=== PATIENT | female | born 1945 | race Caucasian/White ===

== ENCOUNTER → 2017-05-22 | Outpatient (CLI) | payer MEDICARE ==
--- NOTE | 2017-05-22 14:53 | REPMRS ---
Patient History The patient states she has not had a clinical breast exam in over a year. Patient is postmenopausal. Family history of endometrial cancer in paternal aunt under age 50, breast cancer in maternal aunt at age 60, unknown cancer in paternal uncle at age 24, and unknown cancer in paternal uncle at age 50 or over. Benign excisional biopsy of the left breast. Took hormonal contraceptives for 2 years. Digital Woman Screen Mammo: May 22, 2017 - Exam #: [id number] Bilateral CC and MLO view(s) were taken. Technologist: Edna Spivey, Technologist Prior study comparison: November 25, 2013, bilateral bilat screen digital mammo, performed at [facility] ([facility]). August 12, 2012, bilateral bilat screen digital mammo, performed at [facility] ([facility]). FINDINGS: There are scattered fibroglandular densities. There has been no change in the appearance of the mammogram from the prior studies. There is a mild amount of residual fibroglandular tissue which is fairly symmetric. There is no interval development of dominant mass, architectural distortion, or clustered microcalcification suggestive of malignancy. ASSESSMENT: BI-RADS/ACR category 1 mammogram. Negative. Recommendation Routine screening mammogram in 1 year (for women over age 40). This mammogram was interpreted with the aid of an FDA-approved computer-aided dectection system. Electronically Signed By: Puneet Alatorre MD 05/22/17 1736
== END ==
LOC: M WHC 13:13
PROVIDERS: ATTEND Internal Medicine
DX: Z12.31 Encounter for screening mammogram for malignant neoplasm of breast (principal); Z78.0 Asymptomatic menopausal state; Z80.3 Family history of malignant neoplasm of breast; Z80.49 Family history of malignant neoplasm of other genital organs

== ENCOUNTER → 2017-11-13 | Outpatient (REF) | payer MEDICARE ==
[2017-11-13 20:38] LABS: VITAMIN B12 LEVEL 391 PG/ML
[2017-11-13 20:40] LABS: FOLATE 11.4 NG/ML
== END ==
LOC: M LAB REF 19:51
DX: F03.90 Unspecified dementia, unspecified severity, without behavioral disturbance, psychotic disturbance, mood disturbance, and anxiety (principal)
CPT/HCPCS: 82746

== ENCOUNTER 2017-12-24 22:23 | Inpatient (IN) | payer MEDICARE ==
[2017-12-24 22:46] LABS: BEDSIDE GLUCOSE 126 MG/DL (83-110)
[2017-12-24 23:48] LABS: BASO # 0.1 10^3/uL (0.0-0.2); BASO % 0.5 % (0.0-1.0); EOS # 0.2 10^3/uL (0.0-0.50); EOS % 1.4 % (0.0-3.0); HEMATOCRIT 39.9 % (36.0-47.0); HEMOGLOBIN 13.6 g/dl (12.0-16.0); IMMATURE GRANULOCYTE % 0.4 % (0-3.0); LYMPH # 2.6 10^3/uL (1.5-4.5); LYMPH % 23.8 % (24.0-44.0); MEAN CORPUSCULAR HEMOGLOBIN 30.8 pg (27.0-33.0); MEAN CORPUSCULAR HGB CONC 34.1 g/dl (32.0-36.5); MEAN CORPUSCULAR VOLUME 90.5 fl (80.0-96.0); MONO # 0.8 10^3/uL (0.0-0.8); MONO % 7.7 % (0.0-5.0); NEUTROPHILS # 7.3 10^3/uL (1.8-7.7); NEUTROPHILS % 66.2 % (36.0-66.0); PLATELET COUNT, AUTOMATED 316 10^3/uL (150-450); RED BLOOD COUNT 4.41 10^6/uL (4.00-5.40); RED CELL DISTRIBUTION WIDTH 12.9 % (11.5-14.5)
[2017-12-25 00:13] LABS: AMMONIA 59 uMOL/L (<32)
[2017-12-25 00:25] LABS: ALBUMIN 3.9 GM/DL (3.2-5.2); ALBUMIN/GLOBULIN RATIO 1.22 (1.00-1.93); ALKALINE PHOSPHATASE 88 U/L (45-117); ALT/SGPT 19 U/L (12-78); ANION GAP 13 MEQ/L (8-16); AST/SGOT 32 U/L (7-37); BILIRUBIN,DIRECT 0.2 MG/DL (0.0-0.2); BILIRUBIN,TOTAL 0.6 MG/DL (0.2-1.0); BLOOD UREA NITROGEN 12 MG/DL (7-18); CALCIUM LEVEL 9.1 MG/DL (8.8-10.2); CARBON DIOXIDE LEVEL 23 MEQ/L (21-32); CHLORIDE LEVEL 98 MEQ/L (98-107); CREATININE FOR GFR 2.44 MG/DL (0.55-1.30); ETHYL ALCOHOL (ETHANOL) < 0.003 % (0.000-0.010); FREE THYROXINE INDEX 3.7 % (1.3-4.8); GLOMERULAR FILTRATION RATE 20.7 (>39); GLUCOSE, FASTING 88 MG/DL (70-100); POTASSIUM SERUM 4.2 MEQ/L (3.5-5.1); SODIUM LEVEL 134 MEQ/L (136-145); T UPTAKE 31 % (30-39); TOTAL PROTEIN 7.1 GM/DL (6.4-8.2)
[2017-12-25 00:25] LABS: LACTIC ACID SEPSIS PROTOCOL 2.1 MMOL/L (0.4-2.0)
[2017-12-25] MEDS: NS 500 ML IV (00:30)
[2017-12-25] MEDS ORDERED: ONDANSETRON 4 MG TAB (S0181) PO (02:45)
[2017-12-25] MEDS: LACTULOSE 20 GM/30 ML SYRUP UD PO (03:15)
[2017-12-25] MEDS: NS 1,000 ML IV ×3 (04:32→20:42)
[2017-12-25 05:06] LABS: APPEARANCE, URINE CLOUDY (CLEAR); BACTERIA, URINE AUTO NEGATIVE (NEGATIVE); BILIRUBIN, URINE AUTO NEGATIVE (NEGATIVE); BLOOD, URINE BLOOD 1+ (NEGATIVE); COLOR, URINE YELLOW (YELLOW); GLUCOSE, URINE (UA) AUTO 3+ mg/dL (NEGATIVE); KETONE, URINE AUTO TRACE mg/dL (NEGATIVE); LEUKOCYTE ESTERASE, URINE AUTO 1+ (NEGATIVE); NITRITE, URINE AUTO NEGATIVE (NEGATIVE); PROTEIN, URINE AUTO 1+ mg/dL (NEGATIVE); RBC, URINE AUTO 3 /HPF (0-3); SPECIFIC GRAVITY URINE AUTO 1.011 (1.002-1.035); SQUAMOUS EPITHELIAL CELL UR AU 1 /HPF (0-6); UROBILINOGEN, URINE AUTO 0.2 mg/dL (0.0-2.0); WBC, URINE AUTO 16 /HPF (0-3)
[2017-12-25 05:15] LABS: AMPHETAMINES LEVEL URINE NEGATIVE (NEGATIVE); BARBITURATES URINE NEGATIVE (NEGATIVE); BENZODIAZEPINES URINE NEGATIVE (NEGATIVE); CANNABINOIDS URINE NEGATIVE (NEGATIVE); COCAINE METABOLITE URINE NEGATIVE (NEGATIVE); METHADONE URINE NEGATIVE (NEGATIVE); OPIATES URINE NEGATIVE (NEGATIVE); PHENCYCLIDINE URINE NEGATIVE (NEGATIVE)
[2017-12-25] MEDS: HEPARIN SOD (PORCINE) 5000 UNITS/ML VIAL SC ×3 (05:53→20:43)
[2017-12-25 05:59] LABS: HEMATOCRIT 39.9 % (36.0-47.0); HEMOGLOBIN 13.5 g/dl (12.0-16.0); MEAN CORPUSCULAR HEMOGLOBIN 29.9 pg (27.0-33.0); MEAN CORPUSCULAR HGB CONC 33.8 g/dl (32.0-36.5); MEAN CORPUSCULAR VOLUME 88.5 fl (80.0-96.0); PLATELET COUNT, AUTOMATED 296 10^3/uL (150-450); RED BLOOD COUNT 4.51 10^6/uL (4.00-5.40); RED CELL DISTRIBUTION WIDTH 12.8 % (11.5-14.5); WHITE BLOOD COUNT 10.5 10^3/uL (4.0-10.0)
[2017-12-25 06:18] LABS: ANION GAP 12 MEQ/L (8-16); BLOOD UREA NITROGEN 13 MG/DL (7-18); CALCIUM LEVEL 8.8 MG/DL (8.8-10.2); CARBON DIOXIDE LEVEL 22 MEQ/L (21-32); CHLORIDE LEVEL 103 MEQ/L (98-107); CREATININE FOR GFR 2.23 MG/DL (0.55-1.30); GLOMERULAR FILTRATION RATE 22.9 (>39); GLUCOSE, FASTING 100 MG/DL (70-100); POTASSIUM SERUM 3.6 MEQ/L (3.5-5.1); SODIUM LEVEL 137 MEQ/L (136-145)
[2017-12-25 06:22] LABS: LACTIC ACID SEPSIS PROTOCOL 1.4 MMOL/L (0.4-2.0)
[2017-12-25 06:36] LABS: INR 1.05; PROTHROMBIN TIME 13.8 SECONDS (12.4-14.5)
[2017-12-25] MEDS: HumaLOG INSULIN (NovoLOG) PER UNIT SC ×4 (06:52→20:42)
[2017-12-25] MEDS: CLOPIDOGREL 75 MG TAB PO (09:12)
[2017-12-25] MEDS: ASPIRIN 81 MG ENTERIC TAB PO (09:12)
[2017-12-25] MEDS: CEFTRIAXONE SOD 1 GM in APPROPRIATE DILUENT 1 EA IV (09:12)
[2017-12-25] MEDS: CitaloPRAM (CeleXA) 20 MG TAB PO (09:12)
[2017-12-25] MEDS: ATENOLOL 25 MG TAB PO (09:16)
[2017-12-25] MEDS: MEMANTINE 5MG TABLET (NAMENDA) PO (12:00)
[2017-12-25 16:53] LABS: BEDSIDE GLUCOSE 139 MG/DL (83-110)
[2017-12-26] MEDS: ACETAMINOPHEN TAB 650MG DOSE (2X325MG) PO (01:22)
[2017-12-26 01:53] LABS: BEDSIDE GLUCOSE 124 MG/DL (83-110)
[2017-12-26 01:53] LABS: BEDSIDE GLUCOSE 125 MG/DL (83-110)
[2017-12-26] MEDS: NS 1,000 ML IV ×3 (04:16→20:45)
[2017-12-26] MEDS: HEPARIN SOD (PORCINE) 5000 UNITS/ML VIAL SC ×3 (05:27→20:45)
[2017-12-26 06:11] LABS: HEMATOCRIT 34.6 % (36.0-47.0); HEMOGLOBIN 11.7 g/dl (12.0-16.0); MEAN CORPUSCULAR HEMOGLOBIN 30.6 pg (27.0-33.0); MEAN CORPUSCULAR HGB CONC 33.8 g/dl (32.0-36.5); MEAN CORPUSCULAR VOLUME 90.6 fl (80.0-96.0); PLATELET COUNT, AUTOMATED 216 10^3/uL (150-450); RED BLOOD COUNT 3.82 10^6/uL (4.00-5.40); RED CELL DISTRIBUTION WIDTH 13.1 % (11.5-14.5); WHITE BLOOD COUNT 6.5 10^3/uL (4.0-10.0)
[2017-12-26 06:39] LABS: ANION GAP 9 MEQ/L (8-16); BLOOD UREA NITROGEN 8 MG/DL (7-18); CALCIUM LEVEL 8.4 MG/DL (8.8-10.2); CARBON DIOXIDE LEVEL 23 MEQ/L (21-32); CHLORIDE LEVEL 108 MEQ/L (98-107); CREATININE FOR GFR 1.06 MG/DL (0.55-1.30); GLOMERULAR FILTRATION RATE 54.1 (>39); GLUCOSE, FASTING 92 MG/DL (70-100); POTASSIUM SERUM 3.5 MEQ/L (3.5-5.1); SODIUM LEVEL 140 MEQ/L (136-145)
[2017-12-26] MEDS: HumaLOG INSULIN (NovoLOG) PER UNIT SC ×4 (07:30→20:45)
[2017-12-26] MEDS: CLOPIDOGREL 75 MG TAB PO (08:23)
[2017-12-26] MEDS: ATENOLOL 25 MG TAB PO (08:23)
[2017-12-26] MEDS: MEMANTINE 5MG TABLET (NAMENDA) PO (08:24)
[2017-12-26] MEDS: ASPIRIN 81 MG ENTERIC TAB PO (08:24)
[2017-12-26] MEDS: CitaloPRAM (CeleXA) 20 MG TAB PO (08:24)
[2017-12-26] MEDS: CEFTRIAXONE SOD 1 GM in APPROPRIATE DILUENT 1 EA IV (08:24)
[2017-12-26 23:26] LABS: BEDSIDE GLUCOSE 117 MG/DL (83-110)
[2017-12-26 23:26] LABS: BEDSIDE GLUCOSE 141 MG/DL (83-110)
[2017-12-26 23:26] LABS: BEDSIDE GLUCOSE 108 MG/DL (83-110)
[2017-12-27] MEDS: NS 1,000 ML IV ×2 (05:17→13:10)
[2017-12-27] MEDS: HEPARIN SOD (PORCINE) 5000 UNITS/ML VIAL SC ×3 (05:19→23:19)
[2017-12-27 07:02] LABS: HEMATOCRIT 37.8 % (36.0-47.0); HEMOGLOBIN 12.1 g/dl (12.0-16.0); MEAN CORPUSCULAR HEMOGLOBIN 29.9 pg (27.0-33.0); MEAN CORPUSCULAR VOLUME 93.3 fl (80.0-96.0); PLATELET COUNT, AUTOMATED 225 10^3/uL (150-450); RED BLOOD COUNT 4.05 10^6/uL (4.00-5.40); RED CELL DISTRIBUTION WIDTH 13.1 % (11.5-14.5); WHITE BLOOD COUNT 6.1 10^3/uL (4.0-10.0)
[2017-12-27 07:19] LABS: ANION GAP 9 MEQ/L (8-16); BLOOD UREA NITROGEN 5 MG/DL (7-18); CARBON DIOXIDE LEVEL 20 MEQ/L (21-32); CHLORIDE LEVEL 113 MEQ/L (98-107); GLOMERULAR FILTRATION RATE > 60.0 (>39); GLUCOSE, FASTING 86 MG/DL (70-100); POTASSIUM SERUM 3.9 MEQ/L (3.5-5.1); SODIUM LEVEL 142 MEQ/L (136-145)
[2017-12-27] MEDS: HumaLOG INSULIN (NovoLOG) PER UNIT SC ×4 (07:32→21:00)
[2017-12-27] MEDS: CitaloPRAM (CeleXA) 20 MG TAB PO (08:38)
[2017-12-27] MEDS: CLOPIDOGREL 75 MG TAB PO (08:38)
[2017-12-27] MEDS: ASPIRIN 81 MG ENTERIC TAB PO (08:38)
[2017-12-27] MEDS: MEMANTINE 5MG TABLET (NAMENDA) PO (08:38)
[2017-12-27] MEDS: ATENOLOL 25 MG TAB PO (08:40)
[2017-12-27] MEDS: CEFTRIAXONE SOD 1 GM in APPROPRIATE DILUENT 1 EA IV (08:44)
[2017-12-27 11:59] LABS: BEDSIDE GLUCOSE 125 MG/DL (83-110)
[2017-12-27 17:30] LABS: BEDSIDE GLUCOSE 128 MG/DL (83-110)
[2017-12-27 20:51] LABS: BEDSIDE GLUCOSE 149 MG/DL (83-110)
[2017-12-28] MEDS: HEPARIN SOD (PORCINE) 5000 UNITS/ML VIAL SC (06:23)
[2017-12-28 06:34] LABS: HEMATOCRIT 34.3 % (36.0-47.0); HEMOGLOBIN 11.5 g/dl (12.0-16.0); MEAN CORPUSCULAR HEMOGLOBIN 30.1 pg (27.0-33.0); MEAN CORPUSCULAR HGB CONC 33.5 g/dl (32.0-36.5); MEAN CORPUSCULAR VOLUME 89.8 fl (80.0-96.0); PLATELET COUNT, AUTOMATED 238 10^3/uL (150-450); RED BLOOD COUNT 3.82 10^6/uL (4.00-5.40); RED CELL DISTRIBUTION WIDTH 13.2 % (11.5-14.5); WHITE BLOOD COUNT 5.5 10^3/uL (4.0-10.0)
[2017-12-28 06:48] LABS: ANION GAP 10 MEQ/L (8-16); BLOOD UREA NITROGEN 6 MG/DL (7-18); CALCIUM LEVEL 8.7 MG/DL (8.8-10.2); CARBON DIOXIDE LEVEL 24 MEQ/L (21-32); CHLORIDE LEVEL 110 MEQ/L (98-107); CREATININE FOR GFR 0.79 MG/DL (0.55-1.30); GLOMERULAR FILTRATION RATE > 60.0 (>39); GLUCOSE, FASTING 108 MG/DL (70-100); POTASSIUM SERUM 3.6 MEQ/L (3.5-5.1); SODIUM LEVEL 144 MEQ/L (136-145)
[2017-12-28] MEDS: CEFTRIAXONE SOD 1 GM in APPROPRIATE DILUENT 1 EA IV (08:21)
[2017-12-28] MEDS: ASPIRIN 81 MG ENTERIC TAB PO (08:22)
[2017-12-28] MEDS: CitaloPRAM (CeleXA) 20 MG TAB PO (08:22)
[2017-12-28] MEDS: HumaLOG INSULIN (NovoLOG) PER UNIT SC (08:22)
[2017-12-28] MEDS: CLOPIDOGREL 75 MG TAB PO (08:22)
[2017-12-28] MEDS: MEMANTINE 5MG TABLET (NAMENDA) PO (08:22)
[2017-12-28] MEDS: ATENOLOL 25 MG TAB PO (08:23)
[2017-12-28 12:33] LABS: BEDSIDE GLUCOSE 130 MG/DL (83-110)
== END 2017-12-28 12:45 | disposition home health service (06) | DRG 948 ==
LOC: M MSPAV 12-26 04:12 → M ED 22:23 → M ED INP 12-25 02:52 → M PCU 12-25 04:12
PROVIDERS: Internal Medicine
DX: R41.82 Altered mental status, unspecified (principal); N17.9 Acute kidney failure, unspecified; E87.1 Hypo-osmolality and hyponatremia; E87.2 Acidosis; R44.0 Auditory hallucinations; F03.90 Unspecified dementia, unspecified severity, without behavioral disturbance, psychotic disturbance, mood disturbance, and anxiety; E11.9 Type 2 diabetes mellitus without complications; R44.1 Visual hallucinations; I25.10 Atherosclerotic heart disease of native coronary artery without angina pectoris; E78.5 Hyperlipidemia, unspecified; E86.0 Dehydration; R19.7 Diarrhea, unspecified; Z79.82 Long term (current) use of aspirin; Z79.84 Long term (current) use of oral hypoglycemic drugs; Z79.899 Other long term (current) drug therapy; Z87.891 Personal history of nicotine dependence; Z79.02 Long term (current) use of antithrombotics/antiplatelets

== ENCOUNTER → 2018-01-30 | Outpatient (REF) | payer MEDICARE ==
[2018-01-30 13:27] LABS: AMMONIA < 10 uMOL/L (<32)
== END ==
LOC: M LAB REF 12:15
DX: R44.0 Auditory hallucinations (principal)
CPT/HCPCS: 82140

== ENCOUNTER → 2018-03-31 | Outpatient (REF) | payer MEDICARE ==
[2018-03-31 09:56] LABS: ANION GAP 7 MEQ/L (8-16); BLOOD UREA NITROGEN 25 MG/DL (7-18); CALCIUM LEVEL 9.2 MG/DL (8.8-10.2); CARBON DIOXIDE LEVEL 29 MEQ/L (21-32); CHLORIDE LEVEL 102 MEQ/L (98-107); CREATININE FOR GFR 1.16 MG/DL (0.55-1.30); GLOMERULAR FILTRATION RATE 48.8 (>39); GLUCOSE, FASTING 223 MG/DL (70-100); POTASSIUM SERUM 4.3 MEQ/L (3.5-5.1); SODIUM LEVEL 138 MEQ/L (136-145)
== END ==
LOC: SKLAB8 08:00
DX: N18.3 Chronic kidney disease, stage 3 (moderate) (principal)
CPT/HCPCS: 36415

== ENCOUNTER → 2018-05-01 | Outpatient (REF) | payer MEDICARE ==
[2018-05-01 08:11] LABS: HEMATOCRIT 38.1 % (36.0-47.0); HEMOGLOBIN 12.6 g/dl (12.0-15.5); MEAN CORPUSCULAR HEMOGLOBIN 30.4 pg (27.0-33.0); MEAN CORPUSCULAR HGB CONC 33.1 g/dl (32.0-36.5); PLATELET COUNT, AUTOMATED 283 10^3/uL (150-450); RED BLOOD COUNT 4.14 10^6/uL (4.00-5.40); RED CELL DISTRIBUTION WIDTH 12.2 % (11.5-14.5); WHITE BLOOD COUNT 7.1 10^3/uL (4.0-10.0)
== END ==
LOC: SKLAB8 07:00
DX: E11.9 Type 2 diabetes mellitus without complications (principal)
CPT/HCPCS: 36415

== ENCOUNTER → 2018-07-31 | Outpatient (REF) | payer MEDICARE ==
[2018-07-31 08:39] LABS: HEMATOCRIT 39.7 % (36.0-47.0); HEMOGLOBIN 13.3 g/dl (12.0-15.5); MEAN CORPUSCULAR HEMOGLOBIN 29.4 pg (27.0-33.0); MEAN CORPUSCULAR HGB CONC 33.5 g/dl (32.0-36.5); MEAN CORPUSCULAR VOLUME 87.6 fl (80.0-96.0); PLATELET COUNT, AUTOMATED 257 10^3/uL (150-450); RED BLOOD COUNT 4.53 10^6/uL (4.00-5.40); RED CELL DISTRIBUTION WIDTH 12.4 % (11.5-14.5); WHITE BLOOD COUNT 5.3 10^3/uL (4.0-10.0)
[2018-07-31 09:06] LABS: ALBUMIN 3.4 GM/DL (3.2-5.2); ALBUMIN/GLOBULIN RATIO 1.13 (1.00-1.93); ALKALINE PHOSPHATASE 109 U/L (45-117); ALT/SGPT 20 U/L (12-78); ANION GAP 8 MEQ/L (8-16); AST/SGOT 10 U/L (7-37); BILIRUBIN,TOTAL 0.4 MG/DL (0.2-1.0); BLOOD UREA NITROGEN 15 MG/DL (7-18); CALCIUM LEVEL 9.5 MG/DL (8.8-10.2); CARBON DIOXIDE LEVEL 30 MEQ/L (21-32); CHLORIDE LEVEL 98 MEQ/L (98-107); CREATININE FOR GFR 1.19 MG/DL (0.55-1.30); GLOMERULAR FILTRATION RATE 47.2 (>39); GLUCOSE, FASTING 527 MG/DL (70-100); POTASSIUM SERUM 4.9 MEQ/L (3.5-5.1); SODIUM LEVEL 136 MEQ/L (136-145); TOTAL PROTEIN 6.4 GM/DL (6.4-8.2)
[2018-07-31 11:32] LABS: ESTIMATED AVERAGE GLUCOSE 352 MG/DL (60-110); HEMOGLOBIN A1c 13.9 %
== END ==
LOC: SKLAB8 07:00
DX: F03.90 Unspecified dementia, unspecified severity, without behavioral disturbance, psychotic disturbance, mood disturbance, and anxiety (principal); E11.9 Type 2 diabetes mellitus without complications; N18.9 Chronic kidney disease, unspecified
CPT/HCPCS: 80053

== ENCOUNTER → 2018-10-30 | Outpatient (REF) | payer MEDICARE ==
[~2018-10-30] MED LIST: ASPI81TA52; ASPI81TAEC PO; ATEN25TA; ATEN25TA PO; ATOR40TA75; CITA20TA4; CITA20TA4 PO; CLOP75TA2; CLOP75TA2 PO; DONEPEZIL; DONETAB6 PO; GLIM2TAB; INVO300T; INVO300T PO; LORA-243; LOSA100T50; LOSA100T50 PO; MEMA1TAB; MEMA1TAB PO; METF750T; METF750T PO; TRUL0.5I SC
[2018-10-30 08:46] LABS: HEMATOCRIT 42.1 % (36.0-47.0); HEMOGLOBIN 14.3 g/dl (12.0-15.5); MEAN CORPUSCULAR HEMOGLOBIN 29.5 pg (27.0-33.0); MEAN CORPUSCULAR VOLUME 86.8 fl (80.0-96.0); PLATELET COUNT, AUTOMATED 337 10^3/uL (150-450); RED BLOOD COUNT 4.85 10^6/uL (4.00-5.40); WHITE BLOOD COUNT 6.7 10^3/uL (4.0-10.0)
== END ==
LOC: SKLAB8 07:00
PROVIDERS: ATTEND Internal Medicine
DX: N18.3 Chronic kidney disease, stage 3 (moderate) (principal); E11.9 Type 2 diabetes mellitus without complications

== ENCOUNTER → 2019-04-02 | Outpatient (REF) | payer MEDICARE ==
[~2019-04-02] MED LIST changes: -CITA20TA4; -CITA20TA4 PO; +CITA20TA6; +CITA20TA6 PO
== END ==
LOC: SKLAB8 07:00
PROVIDERS: ATTEND Internal Medicine
DX: E11.9 Type 2 diabetes mellitus without complications (principal); Z79.01 Long term (current) use of anticoagulants

== ENCOUNTER → 2019-04-30 | Outpatient (REF) | payer MEDICARE ==
[2019-04-30 08:04] LABS: HEMATOCRIT 39.9 % (36.0-47.0); HEMOGLOBIN 13.3 g/dl (12.0-15.5); MEAN CORPUSCULAR HEMOGLOBIN 30.4 pg (27.0-33.0); MEAN CORPUSCULAR HGB CONC 33.3 g/dl (32.0-36.5); MEAN CORPUSCULAR VOLUME 91.3 fl (80.0-96.0); PLATELET COUNT, AUTOMATED 312 10^3/uL (150-450); RED BLOOD COUNT 4.37 10^6/uL (4.00-5.40); WHITE BLOOD COUNT 7.6 10^3/uL (4.0-10.0)
== END ==
LOC: SKLAB8 07:00
PROVIDERS: ATTEND Internal Medicine
DX: I48.91 Unspecified atrial fibrillation (principal); D68.69 Other thrombophilia

== ENCOUNTER → 2019-07-30 | Outpatient (REF) | payer MEDICARE ==
[~2019-07-30] MED LIST changes: -METF750T; -METF750T PO; +METF750T36; +METF750T36 PO
[2019-07-30 08:46] LABS: HEMATOCRIT 38.3 % (36.0-47.0); HEMOGLOBIN 12.6 g/dl (12.0-15.5); MEAN CORPUSCULAR HEMOGLOBIN 29.9 pg (27.0-33.0); MEAN CORPUSCULAR HGB CONC 32.9 g/dl (32.0-36.5); MEAN CORPUSCULAR VOLUME 90.8 fl (80.0-96.0); PLATELET COUNT, AUTOMATED 296 10^3/uL (150-450); RED BLOOD COUNT 4.22 10^6/uL (4.00-5.40); WHITE BLOOD COUNT 7.5 10^3/uL (4.0-10.0)
[2019-07-30 09:22] LABS: ALBUMIN 3.4 GM/DL (3.2-5.2); BILIRUBIN,TOTAL 0.3 MG/DL (0.2-1.0); CALCIUM LEVEL 9.3 MG/DL (8.8-10.2); CREATININE FOR GFR 1.02 MG/DL (0.55-1.30); GLOMERULAR FILTRATION RATE 56.2 (>39); POTASSIUM SERUM 4.6 MEQ/L (3.5-5.1); TOTAL PROTEIN 7.3 GM/DL (6.4-8.2)
== END ==
LOC: SKLAB8 07:00
PROVIDERS: ATTEND Internal Medicine
DX: Z79.899 Other long term (current) drug therapy (principal)

== ENCOUNTER 2019-08-22 11:50 | Inpatient (IN) | payer MEDICARE, MEDICAID ==
[~2019-08-22] VITALS: Ht 160 cm; Wt 78.4 kg
[~2019-08-22 11:50] MED LIST changes: -GLIM2TAB; +GLIM2TAB2
[2019-08-22] MEDS ORDERED: METOPROLOL 5 MG/5 ML VIAL IV SCH (12:15)
--- NOTE | 2019-08-22 12:29 | REP ---
Portable chest, 12:04 p.m., single AP view with the patient semi upright: Comparison is the PA and lateral chest dated 10/09/2006. There is an incomplete inspiratory effort. The lung guzman otherwise clear. Cardiac size is normal. The desire, mediastinum, and skeletal structures are unremarkable. Impression: Incomplete inspiratory effort, otherwise negative portable chest. Electronically Signed by Puneet Anderson MD 08/22/2019 12:20 P
[2019-08-22] MEDS ORDERED: ASPI81CH33 PO (12:36)
[2019-08-22] MEDS ORDERED: MOM30SS PO (12:36)
[2019-08-22] MEDS ORDERED: ACET-907 PO (12:36)
[2019-08-22] MEDS ORDERED: METF500T13 PO (12:36)
[2019-08-22] MEDS ORDERED: TYLE650T38 PO (12:36)
[2019-08-22] MEDS ORDERED: GLIP5TAB8 PO (12:36)
[2019-08-22] MEDS ORDERED: TRAD5TAB PO (12:36)
[2019-08-22] MEDS ORDERED: ENEMENE PR (12:36)
[2019-08-22] MEDS ORDERED: DULC10SU2 PR (12:36)
[2019-08-22 12:38] LABS: BASO # 0.1 10^3/uL (0.0-0.2); BASO % 0.5 % (0.0-1.0); EOS # 0.2 10^3/uL (0.0-0.5); HEMATOCRIT 41.1 % (36.0-47.0); HEMOGLOBIN 13.2 g/dl (12.0-15.5); LYMPH # 1.2 10^3/uL (1.5-5.0); LYMPH % 12.2 % (24.0-44.0); MEAN CORPUSCULAR HEMOGLOBIN 28.8 pg (27.0-33.0); MEAN CORPUSCULAR HGB CONC 32.1 g/dl (32.0-36.5); MEAN CORPUSCULAR VOLUME 89.7 fl (80.0-96.0); MONO # 0.6 10^3/uL (0.0-0.8); NEUTROPHILS % 78.9 % (36.0-66.0); PLATELET COUNT, AUTOMATED 299 10^3/uL (150-450); RED BLOOD COUNT 4.58 10^6/uL (4.00-5.40); WHITE BLOOD COUNT 10.2 10^3/uL (4.0-10.0)
[2019-08-22 12:50] LABS: INR 1.05; PROTHROMBIN TIME 13.4 SECONDS (11.8-14.0)
[2019-08-22 13:22] LABS: ALBUMIN 3.4 GM/DL (3.2-5.2); ALT/SGPT 27 U/L (12-78); BILIRUBIN,DIRECT < 0.1 MG/DL (0.0-0.2); BILIRUBIN,TOTAL 0.2 MG/DL (0.2-1.0); BLOOD UREA NITROGEN 17 MG/DL (7-18); CARBON DIOXIDE LEVEL 26 MEQ/L (21-32); CHLORIDE LEVEL 100 MEQ/L (98-107); CK-MB VALUE MASS 2.1 NG/ML (<3.6); CPK CREATINE PHOSPHOKINASE 132 U/L (26-192); CREATININE FOR GFR 1.18 MG/DL (0.55-1.30); GLOMERULAR FILTRATION RATE 47.5 (>39); GLUCOSE, FASTING 281 MG/DL (70-100); LIPASE 215 U/L (73-393); MB/CK RELATIVE INDEX 1.59 (< OR =4); NT-PRO BNP 258 PG/ML (<450); POTASSIUM SERUM 4.5 MEQ/L (3.5-5.1); SODIUM LEVEL 136 MEQ/L (136-145); TOTAL PROTEIN 7.3 GM/DL (6.4-8.2); TROPONIN I 0.03 NG/ML (< 0.10)
[2019-08-22] MEDS ORDERED: ELIQ5TAB PO (13:52)
[2019-08-22] MEDS ORDERED: METO1TAB87 PO (13:52)
[2019-08-22] MEDS ORDERED: APIXABAN 5 MG TAB (ELIQUIS) PO ONE (14:00)
[2019-08-22] MEDS ORDERED: METOPROLOL TART 25 MG TABLET PO ONE (14:00)
--- NOTE | 2019-08-22 14:26 | ECGEPIP ---
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
--- NOTE | 2019-08-22 17:24 | ECGEPIP ---
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
[2019-08-22 17:28] LABS: CK-MB VALUE MASS 3.2 NG/ML (<3.6); MB/CK RELATIVE INDEX 2.16 (< OR =4); TROPONIN I 0.36 NG/ML (< 0.10)
[2019-08-22] MEDS ORDERED: BISACODYL 10 MG SUPP PR PRN (18:45)
[2019-08-22] MEDS ORDERED: MOM 30ML SUSPENSION UDC PO PRN (18:45)
--- NOTE | 2019-08-22 18:56 | HPEPDOC ---
General Date of Admission 08/22/2019 Date of Service: Aug 22, 2019 Chief Complaint The patient is a 74-year-old female admitted with a reason for visit of chest pain. Source: RN/MD, [facility] records, Old records Exam Limitations: Dementia Severity: Moderate History of Present Illness 74 year old female a resident of [facility] with PMH of Dementia, Diabetes, Coronary artery disease (CAD), Hyperlipidemia, Hypertension with hypertensive heart disease, Peripheral vascular disease, GERD, CKD stage 3 was sent from the [place] for [place] pain which happened at around 11 am. EMS was called for chest pain and EMS found her to be in AIB with rvr with rate of 135 so was brought to the ED. In the ED also she was noted to be in Afib with rvr then she spontaneously corrected in about 2 hours. No reliable history can be obtained form the patient . All history is taken from [place] notes, ED records and ED physician old EMR. She denies any complaints. She says she has 3 daughters who are at school. She says she is in [place] but does not know that this is a hospital, does not know the year , does not know where she lives. She does know that she does not work any more. She is ambulatory and steady on her feet but as per nurses in the ED has a tendency to wander about out of the room. The initial troponin was negative however the repeat one after 6 hours was elevated to 0.36 so the patient was admitted for paroxysmal afib with rvr and elevated troponins. Home Medications Scheduled Acetaminophen (Tylenol 8 Hour) 650 Mg Tablet.er, 650 MG PO Q12H, (Reported) Apixaban (Eliquis) 5 Mg Tablet, 5 MG PO BID Aspirin (Aspirin) 81 Mg Tab.chew, 81 MG PO DAILY, (Reported) Clopidogrel Bisulfate (Clopidogrel) 75 Mg Tab, 75 MG PO QPM, (Reported) Glipizide (Glipizide) 5 Mg Tablet, 5 MG PO TID, (Reported) Linagliptin (Tradjenta) 5 Mg Tablet, 5 MG PO DAILY, (Reported) Losartan Potassium (Losartan Potassium) 100 Mg Tab, 100 MG PO DAILY, (Reported) Metformin HCl (Metformin HCl) 500 Mg Tablet, 500 MG PO BID, (Reported) Metoprolol Tartrate (Metoprolol Tartrate) 25 Mg Tablet, 0.5 TAB PO BID Scheduled PRN Acetaminophen (Tylenol) 325 Mg Tablet, 650 MG PO Q4H PRN for PAIN / FEVER, (Reported) Bisacodyl (Dulcolax) 10 Mg Supp.rect, 10 MG NC DAILY PRN for CONSTIPATION, (Reported) Milk Of Magnesia (Milk of Magnesia) 2,400 Mg/10 Ml Oral.susp, 10 ML PO DAILY PRN for CONSTIPATION, (Reported) Sodium Phosphate,[place]urora-Dibasic (Enema) 133 Ml Enema, 1 MIGUEL ANGEL NC DAILY PRN for CONSTIPATION, (Reported) Allergies Coded Allergies: chlorpromazine (Verified Allergy, Unknown, unknown, 08/22/19) Past Medical History Medical History Dementia, Diabetes, Coronary artery disease (CAD), Hyperlipidemia, Hypertension with hypertensive heart disease, Peripheral vascular disease, GERD, CKD stage 3 Surgical History 1. Two femoral bypass surgeries. 2. Ear surgery. 3. Left shoulder surgery. 4. appendectomy 5. tonsillectomy 6. breast biopsies 7. wedge resections bilaterally Family History Significant Family History: Other (with dementia, atrial fibrillation) Social History * Smoker: former Smoker Alcohol: Denies Drugs: denies A-FIB/CHADSVASC A-FIB History Current/History of A-Fib/PAF?: Yes Current PO Anticoag Therapy: Yes Review of Systems Constitutional: Denies: Chills, Fever, Night Sweats Eyes: Denies: Pain, Vision change ENT: Denies: Head Aches, Ear Pain, Dysphagia Skin: Denies: Rash, Lesions, Breakdown Pulmonary: Denies: Dyspnea, Cough Cardiovascular: Denies: Chest Pain, Palpitations, Orthopnea, Paroxysmal Noc. Dyspnea, Lt Headedness Gastrointestinal: Denies: Nausea, Vomiting, Abdominal Pain, Diarrhea Genitourinary: Denies: Dysuria, Frequency, Incontinence, Retention Musculoskeletal: Denies: Neck Pain, Back Pain, Joint Pain, Muscle Pain, Spasms Neurological: Denies: Weakness, Numbness, Change in speech, Confusion Psych: Reports: Memory Issues Physical Examination General Exam: Positive: Alert, Cooperative, No Acute Distress, Other (not oriented to time or place, only oriented to name) Eye Exam: Positive: PERRLA, Conjunctiva & lids normal, EOMI; Negative: Sclera icteric ENT Exam: Positive: Atraumatic, Mucous membr. moist/pink, Pharynx Normal Neck Exam: Positive: Supple; Negative: JVD, thyromegaly Chest Exam: Positive: Clear to auscultation, Normal air movement Heart Exam: Positive: Rate Normal, Regular Rhythm, Normal S1, Normal S2; Negative: Murmurs, Rubs Telemetry: Positive: No significant arrhythmia Abdomen Exam: Positive: Normal bowel sounds, Soft; Negative: Tenderness, Hepatospenomegaly Extremity Exam: Negative: Clubbing, Cyanosis, Edema Skin Exam: Positive: Other skin issue (dry skin) Neuro Exam: Positive: Normal Speech, Strength at 5/5 X4 ext, Normal Tone Vital Signs Vital Signs Date Time Temp Pulse Resp B/P (MAP) Pulse Ox O2 Delivery O2 Flow Rate FiO2 08/22/19 17:24 97.3 68 17 139/82 (101) 98 Room Air Laboratory Data Labs 24H Laboratory Tests 2 08/22/19 12:26: Immature Granulocyte % (Auto) 0.4, Neutrophils (%) (Auto) 78.9H, Lymphocytes (%) (Auto) 12.2L, Monocytes (%) (Auto) 6.0H, Eosinophils (%) (Auto) 2.0, Basophils (%) (Auto) 0.5, Neutrophils # (Auto) 8.0, Lymphocytes # (Auto) 1.2L, Monocytes # (Auto) 0.6, Eosinophils # (Auto) 0.2, Basophils # (Auto) 0.1, Nucleated Red Blood Cells % (auto) 0.0, Prothrombin Time 13.4, Prothromb Time International Ratio 1.05, Anion Gap 10, Glomerular Filtration Rate 47.5, Calcium Level 9.0, Total Bilirubin 0.2, Direct Bilirubin < 0.1, Aspartate Amino Transf (AST/SGOT) 22, Alanine Aminotransferase (ALT/SGPT) 27, Alkaline Phosphatase 78, Total Creatine Kinase 132, Creatine Kinase MB 2.1, Creatine Kinase MB Relative Index 1.59, Troponin I 0.03, JI-Bjq-F-Type Natriuretic Peptide 258, Total Protein 7.3, Albumin 3.4, Albumin/Globulin Ratio 0.87L, Lipase 215, Thyroid Stimulating Hormone (TSH) 3.110 08/22/19 16:42: Total Creatine Kinase 148, Creatine Kinase MB 3.2, Creatine Kinase MB Relative Index 2.16, Troponin I 0.36#H CBC/BMP Laboratory Tests 08/22/19 12:26 Assessment/Plan 74 year old female a resident of [facility] with PMH of Dementia, Diabetes, Coronary artery disease (CAD), Hyperlipidemia, Hypertension with hypertensive heart disease, Peripheral vascular disease, GERD, CKD stage 3 was sent from the [place] for chest pain which happened at around 11 am. EMS was called for chest pain and EMS found her to be in AIB with rvr with rate of 135 so was brought to the ED. In the ED she was found to have elevated troponins on repeat so was admitted. Paroxysmal afib with rvr now in sinus rhythm telemetry, metoprolol, eliquis, echo will continue plavix but will stop asa. Elevated troponins this is probably due to tachycardia. will repeat in 6 hours. Diabetes will continue glipizide hold metformin and trajenta PVD will continue plavix but stop ASA as she is started on eliquis Hypertension with hypertensive heart disease continue losartan Plan / VTE VTE Prophylaxis Ordered?: Yes ARTEMIO SANTOS MD Aug 22, 2019 18:00
[2019-08-22 20:25] VITALS: BP 126/74
[2019-08-22] MEDS: ACETAMINOPHEN 650MG ER TAB (TYLENOL ARTHRITIS) PO SCH (21:00)
[2019-08-22] MEDS: APIXABAN 5 MG TAB (ELIQUIS) PO SCH (21:00)
[2019-08-22] MEDS: METOPROLOL TART 12.5 MG PER 1/2 TAB PO SCH (21:00)
[2019-08-22] MEDS: CLOPIDOGREL 75 MG TAB PO SCH (21:33)
[2019-08-22] MEDS: glipiZIDE (GLUCOTROL) 5 MG TAB PO SCH (21:33)
[2019-08-22 23:18] LABS: CK-MB VALUE MASS 2.9 NG/ML (<3.6); MB/CK RELATIVE INDEX 2.07 (< OR =4); TROPONIN I 0.4 NG/ML (< 0.10)
[2019-08-23] MEDS ORDERED: METOPROLOL TART 12.5 MG PER 1/2 TAB PO ONE (02:15)
[2019-08-23 06:00] VITALS: BP_SYST 115; BP_SYST 128; BP_DIAS 60; BP_DIAS 84
[2019-08-23 06:34] LABS: BASO % 0.4 % (0.0-1.0); EOS # 0.3 10^3/uL (0.0-0.5); EOS % 2.8 % (0.0-3.0); HEMATOCRIT 36.5 % (36.0-47.0); HEMOGLOBIN 12.1 g/dl (12.0-15.5); LYMPH # 1.7 10^3/uL (1.5-5.0); LYMPH % 18.5 % (24.0-44.0); MEAN CORPUSCULAR HEMOGLOBIN 29.2 pg (27.0-33.0); MEAN CORPUSCULAR HGB CONC 33.2 g/dl (32.0-36.5); MEAN CORPUSCULAR VOLUME 88.2 fl (80.0-96.0); MONO # 0.7 10^3/uL (0.0-0.8); MONO % 7.2 % (0.0-5.0); NEUTROPHILS # 6.7 10^3/uL (1.5-8.5); NEUTROPHILS % 70.7 % (36.0-66.0); PLATELET COUNT, AUTOMATED 316 10^3/uL (150-450); RED BLOOD COUNT 4.14 10^6/uL (4.00-5.40); WHITE BLOOD COUNT 9.4 10^3/uL (4.0-10.0)
[2019-08-23 07:08] LABS: CALCIUM LEVEL 8.7 MG/DL (8.8-10.2); CK-MB VALUE MASS 2.3 NG/ML (<3.6); CREATININE FOR GFR 1.04 MG/DL (0.55-1.30); MB/CK RELATIVE INDEX 2.17 (< OR =4); POTASSIUM SERUM 4.2 MEQ/L (3.5-5.1); TROPONIN I 0.27 NG/ML (< 0.10)
[2019-08-23] MEDS: glipiZIDE (GLUCOTROL) 5 MG TAB PO SCH ×3 (08:46→21:12)
[2019-08-23] MEDS: ACETAMINOPHEN 650MG ER TAB (TYLENOL ARTHRITIS) PO SCH ×2 (08:46→21:12)
[2019-08-23] MEDS: APIXABAN 5 MG TAB (ELIQUIS) PO SCH ×2 (08:46→21:12)
[2019-08-23] MEDS: LOSARTAN 50 MG TAB PO SCH (08:47)
[2019-08-23] MEDS: METOPROLOL TART 12.5 MG PER 1/2 TAB PO SCH (08:47)
--- NOTE | 2019-08-23 10:37 | IPNPDOC ---
Subjective Date Seen The patient was seen on 08/23/19. Subjective Chief Complaint/HPI Does not offer any complaints this morning. Sitting up in chair folding hand towels which as per nurses keeps are calm and sitting in the chair otherwise tends to wonder around. Telemetry noted with short pauses and sinus bradycardia at night Objective Physical Examination General Exam: Positive: Alert, Cooperative, No Acute Distress, Other (not oriented to time or place, only oriented to name) Eye Exam: Positive: PERRLA, Conjunctiva & lids normal, EOMI; Negative: Sclera icteric ENT Exam: Positive: Atraumatic, Mucous membr. moist/pink, Pharynx Normal Neck Exam: Positive: Supple; Negative: JVD, thyromegaly Chest Exam: Positive: Clear to auscultation, Normal air movement Heart Exam: Positive: Rate Normal, Regular Rhythm, Normal S1, Normal S2; Negative: Murmurs, Rubs Telemetry: Positive: No significant arrhythmia Abdomen Exam: Positive: Normal bowel sounds, Soft; Negative: Tenderness, Hepatospenomegaly Extremity Exam: Negative: Clubbing, Cyanosis, Edema Skin Exam: Positive: Other skin issue (dry skin) Neuro Exam: Positive: Normal Speech, Strength at 5/5 X4 ext, Normal Tone Assessment /Plan Assessment 74 year old female a resident of [facility] with PMH of Dementia, Diabetes, Coronary artery disease (CAD), Hyperlipidemia, Hypertension with hypertensive heart disease, Peripheral vascular disease, GERD, CKD stage 3 was sent from the [place] for chest pain which happened at around 11 am. EMS was called for chest pain and EMS found her to be in AIB with rvr with rate of 135 so was brought to the ED. In the ED she was found to have elevated troponins on repeat so was admitted. Paroxysmal afib with rvr with pauses during sleep. now in sinus bradycardia. At night patient had short pauses. metoprolol, eliquis, echo will continue plavix but will stop asa. Elevated troponins this is probably due to tachycardia. now down trended. Diabetes will continue glipizide hold metformin and trajenta PVD will continue plavix but stop ASA as she is started on eliquis Hypertension with hypertensive heart disease continue losartan Plan/VTE VTE Prophylaxis Ordered?: Yes VS, I&O, 24H, Fishbone Vital Signs/I&O Vital Signs Date Time Temp Pulse Resp B/P (MAP) Pulse Ox O2 Delivery O2 Flow Rate FiO2 08/23/19 08:47 57 115/60 08/23/19 06:00 96.8 18 98 Room Air I&O- Last 24 Hours up to 6 AM 08/23/19 06:00 Intake Total 0 ml Output Total 0 ml Balance 0 ml Laboratory Data 24H LABS Laboratory Tests 2 08/22/19 12:26: Immature Granulocyte % (Auto) 0.4, Neutrophils (%) (Auto) 78.9H, Lymphocytes (%) (Auto) 12.2L, Monocytes (%) (Auto) 6.0H, Eosinophils (%) (Auto) 2.0, Basophils (%) (Auto) 0.5, Neutrophils # (Auto) 8.0, Lymphocytes # (Auto) 1.2L, Monocytes # (Auto) 0.6, Eosinophils # (Auto) 0.2, Basophils # (Auto) 0.1, Nucleated Red Blood Cells % (auto) 0.0, Prothrombin Time 13.4, Prothromb Time International Ratio 1.05, Anion Gap 10, Glomerular Filtration Rate 47.5, Calcium Level 9.0, Total Bilirubin 0.2, Direct Bilirubin < 0.1, Aspartate Amino Transf (AST/SGOT) 22, Alanine Aminotransferase (ALT/SGPT) 27, Alkaline Phosphatase 78, Total Creatine Kinase 132, Creatine Kinase MB 2.1, Creatine Kinase MB Relative Index 1.59, Troponin I 0.03, AG-Uex-[id number]-Type Natriuretic Peptide 258, Total Protein 7.3, Albumin 3.4, Albumin/Globulin Ratio 0.87L, Lipase 215, Thyroid Stimulating Hormone (TSH) 3.110 08/22/19 16:42: Total Creatine Kinase 148, Creatine Kinase MB 3.2, Creatine Kinase MB Relative Index 2.16, Troponin I 0.36#H 08/22/19 22:48: Total Creatine Kinase 140, Creatine Kinase MB 2.9, Creatine Kinase MB Relative Index 2.07, Troponin I 0.40H 08/23/19 06:01: Immature Granulocyte % (Auto) 0.4, Neutrophils (%) (Auto) 70.7H, Lymphocytes (%) (Auto) 18.5L, Monocytes (%) (Auto) 7.2H, Eosinophils (%) (Auto) 2.8, Basophils (%) (Auto) 0.4, Neutrophils # (Auto) 6.7, Lymphocytes # (Auto) 1.7, Monocytes # (Auto) 0.7, Eosinophils # (Auto) 0.3, Basophils # (Auto) 0.0, Nucleated Red Blood Cells % (auto) 0.0, Anion Gap 7L, Glomerular Filtration Rate 55.0, Calcium Level 8.7L, Total Creatine Kinase 106, Creatine Kinase MB 2.3, Creatine Kinase MB Relative Index 2.17, Troponin I 0.27#H CBC/BMP Laboratory Tests 08/22/19 12:26 08/23/19 06:01 ARTEMIO SANTOS MD Aug 23, 2019 10:37
--- NOTE | 2019-08-23 12:22 | ECGEPIP ---
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
[2019-08-23 14:00] VITALS: BP 95/62
--- NOTE | 2019-08-23 14:05 | CR ---
DATE OF CONSULTATION: 08/23/2019 REFERRING PROVIDER: Dr. Ynes Kinney REASON FOR CONSULTATION: Sinus pauses. HISTORY OF PRESENT ILLNESS: 74-year-old woman a resident of the [facility] who was brought to the ER yesterday for chest pain and she was found to be in atrial fibrillation with a rapid ventricular rate of 235 beats per minute. She also was found to have a bump up in her serum troponin, she was admitted for further management and monitoring. Case was discussed with the ER provider and we decided to start her on a small dose of beta-harish with metoprolol tartrate. Last evening during the night she was found to have multiple pauses, and the longest was about 4.2 seconds. Cardiology consult was called. Mrs. Mariela Doherty had some dementia in all her responses and questions were inappropriate. When I saw her, her nurse was at bedside as well as a sitter She was in no distress. There is no bleeding, there is no cough, vomiting, diarrhea. There is no focal manifestation. PAST MEDICAL HISTORY: Positive for coronary artery disease, hypertension, hyperlipidemia, diabetes mellitus, peripheral vascular disease, dementia, chronic kidney disease, gastroesophageal reflux disease, arthritis. There is no known history of left ventricular systolic dysfunction, significant valvular heart disease. PAST SURGICAL HISTORY: Positive for tonsillectomy, breast biopsy, appendectomy, left shoulder surgery and revascularization done on the lower extremities for PAD with femoral artery bypasses. MEDICATIONS AT HOME: Tylenol 650 mg every 12 hours as needed for pain, Aspirin 81 mg by mouth daily, Plavix 75 mg by mouth daily, Glipizide 5 mg by mouth three times a day, Tradjenta 5 mg by mouth daily, losartan 100 mg by mouth daily, metformin 100 mg by mouth twice a day, and metoprolol tartrate 25 mg. As needed medications she is on Milk of Magnesia, Dulcolax. CURRENT MEDICATIONS: Losartan 100 mg by mouth daily, Plavix 75 mg by mouth daily, glipizide 5 mg by mouth three times a day, metoprolol tartrate 12.5 mg by mouth twice a day, Apixaban 5 mg by mouth twice a day, Tylenol 650 mg every 12 hours as needed for pain, Dulcolax 10 mg daily - suppository as needed, Milk of Magnesia 10 mL by mouth daily as needed for constipation. FAMILY HISTORY: Significant for dementia. SOCIAL HISTORY: The patient is a resident of the [facility] and she is a former smoker. There is no report of EtOH abuse or illicit drugs. ALLERGIES: Codeine. The patient has had care proxy and she has a DO NOT RESUSCITATE status. PHYSICAL EXAMINATION: The patient is alert and oriented, in no acute distress at rest. Her most recent vital signs reveal blood pressure of 115/60 with a pulse of 57, respiration 18 and a maximum temperature is 96.8 with a oxygen saturation of 98% on room air. Examination of the head: Atraumatic. Lungs: Did not reveal any wheezing or crackles. Head examination revealed a regular also without gallops. I could not appreciate any murmurs. Abdomen is soft. Extremities, no pedal edema. Neurological examination was limited but the patient seems to be moving her extremities while in bed. LABORATORY DATA: BMP done today revealed a sodium of 137, potassium 4.2, chloride 105, CO2 25, BUN 17, creatinine 1.04, GFR 55, fasting glucose 238 and calcium 8.7. Serum troponin was 0.03, 0.36, 0.40, and 0.27. Liver enzymes on admission 08/22 revealed a total bilirubin of 0.2, AST 22, ALT 27, total protein 7.3 albumin 3.4. Serum TSH is 3.1. Serum ProBNP on admission was 258. CBC done today revealed a WBC of 9.4, hemoglobin 12.1, hematocrit 36.5 and platelet count of 316,000. On admission on 08/22/2019 CBC revealed WBC of 10.2, hemoglobin 13.2 41.1, platelet 299,000. PT on admission was 13.4 with an INR of 1.05. Chest x-ray on admission revealed an incomplete study otherwise unremarkable. No cardiomegaly. No manifestation of heart failure. :24EKG done today 08/23/2019 at 7:24:13, revealed sinus bradycardia at 52 beats per minute. Otherwise unremarkable. Telemetry strips were reviewed and revealed paroxysmal atrial fibrillation and multiple pauses between 2 and 4.2 seconds between 1 o'clock and 3 o'clock. At that time, she also was in atrial fibrillation. EKG on admission 08/22/2019 at 11:58:57 revealed atrial fibrillation at 131 beats per minute and nonspecific ST-T abnormalities. Repeat electrocardiogram the same day 13:45:52 revealed sinus rhythm at 66 beats per minute. IMPRESSION: Atrial fibrillation, paroxysmal in nature. Patient with underlying sick sinus syndrome but asymptomatic. Her medications were reviewed and the beta harish was discontinued. Will continue to monitor on telemetry. If we find out there is a need for a she might need a permanent pacemaker in this case, we will call Dr. Maciel or Dr. Wilkerson for input. We will continue with Apixaban for prevention of thromboembolic events. We will discontinue the aspirin and she will continue with the Plavix. All other indications were reviewed and she will continue same. Case was discussed yesterday and today with hospitalist. It was a pleasure to participate the care of Mrs. Mariela Doherty for her underlying cardiac condition. Will continue to monitor along with you as needed. Please do not hesitate to call if any questions.
[2019-08-23 14:55] VITALS: BP 129/76
[2019-08-23] MEDS: CLOPIDOGREL 75 MG TAB PO SCH (21:12)
[2019-08-23 22:00] VITALS: BP_SYST 134; BP_SYST 160; BP_DIAS 72; BP_DIAS 96
[2019-08-24 06:13] LABS: BASO # 0.1 10^3/uL (0.0-0.2); BASO % 0.7 % (0.0-1.0); EOS # 0.3 10^3/uL (0.0-0.5); HEMATOCRIT 35.8 % (36.0-47.0); HEMOGLOBIN 11.8 g/dl (12.0-15.5); LYMPH # 1.7 10^3/uL (1.5-5.0); LYMPH % 21.1 % (24.0-44.0); MEAN CORPUSCULAR HEMOGLOBIN 29.2 pg (27.0-33.0); MEAN CORPUSCULAR VOLUME 88.6 fl (80.0-96.0); MONO # 0.6 10^3/uL (0.0-0.8); MONO % 7.3 % (0.0-5.0); NEUTROPHILS # 5.6 10^3/uL (1.5-8.5); NEUTROPHILS % 67.3 % (36.0-66.0); PLATELET COUNT, AUTOMATED 252 10^3/uL (150-450); RED BLOOD COUNT 4.04 10^6/uL (4.00-5.40); WHITE BLOOD COUNT 8.3 10^3/uL (4.0-10.0)
[2019-08-24 06:38] LABS: CREATININE FOR GFR 1.02 MG/DL (0.55-1.30); GLOMERULAR FILTRATION RATE 56.2 (>39)
[2019-08-24] MEDS: APIXABAN 5 MG TAB (ELIQUIS) PO SCH ×2 (09:06→22:20)
[2019-08-24] MEDS: ACETAMINOPHEN 650MG ER TAB (TYLENOL ARTHRITIS) PO SCH ×2 (09:06→22:20)
[2019-08-24] MEDS: glipiZIDE (GLUCOTROL) 5 MG TAB PO SCH ×3 (09:06→22:20)
[2019-08-24] MEDS: LOSARTAN 50 MG TAB PO SCH (09:08)
--- NOTE | 2019-08-24 13:39 | IPNPDOC ---
Subjective Date Seen The patient was seen on 08/24/19. Subjective Chief Complaint/HPI No complaints today. Objective Physical Examination General Exam: Positive: Alert, Cooperative, No Acute Distress, Other (not oriented to time or place, only oriented to name) Eye Exam: Positive: PERRLA, Conjunctiva & lids normal, EOMI; Negative: Sclera icteric ENT Exam: Positive: Atraumatic, Mucous membr. moist/pink, Pharynx Normal Neck Exam: Positive: Supple; Negative: JVD, thyromegaly Chest Exam: Positive: Clear to auscultation, Normal air movement Heart Exam: Positive: Rate Normal, Regular Rhythm, Normal S1, Normal S2; Negative: Murmurs, Rubs Telemetry: Positive: No significant arrhythmia Abdomen Exam: Positive: Normal bowel sounds, Soft; Negative: Tenderness, Hepatospenomegaly Extremity Exam: Negative: Clubbing, Cyanosis, Edema Skin Exam: Positive: Other skin issue (dry skin) Neuro Exam: Positive: Normal Speech, Strength at 5/5 X4 ext, Normal Tone Assessment /Plan Assessment 74 year old female a resident of [facility] with PMH of Dementia, Diabetes, Coronary artery disease (CAD), Hyperlipidemia, Hypertension with hypertensive heart disease, Peripheral vascular disease, GERD, CKD stage 3 [place] sent from the [place] for chest pain which happened at around 11 am. EMS was called for chest pain and EMS found her to be in AIB with rvr with rate of 135 so was brought to the ED. In the ED she was found to have elevated troponins on repeat so was admitted. Paroxysmal afib with underlying sick sinus syndrome asymptomatic. now in sinus bradycardia. At night patient had short pauses. continue eliquis, plavix, echo cardiology consult appreciated will follow their recommendations Elevated troponins this is probably due to tachycardia. now down trended. Diabetes will continue glipizide hold metformin and trajenta PVD will continue plavix but stop ASA as she is started on eliquis Hypertension with hypertensive heart disease continue losartan Advanced dementia tendency to wander has sitter. Plan/VTE VTE Prophylaxis Ordered?: Yes VS, I&O, 24H, Fishbone Vital Signs/I&O Vital Signs Date Time Temp Pulse Resp B/P (MAP) Pulse Ox O2 Delivery O2 Flow Rate FiO2 08/24/19 09:08 163/70 08/23/19 22:00 98.0 60 16 98 Room Air I&O- Last 24 Hours up to 6 AM 08/24/19 05:59 Intake Total 1070 ml Balance 1070 ml Laboratory Data 24H LABS Laboratory Tests 2 08/23/19 16:05: Bedside Glucose (Misc Panel) 274H 08/24/19 05:28: Immature Granulocyte % (Auto) 0.6, Neutrophils (%) (Auto) 67.3H, Lymphocytes (%) (Auto) 21.1L, Monocytes (%) (Auto) 7.3H, Eosinophils (%) (Auto) 3.0, Basophils (%) (Auto) 0.7, Neutrophils # (Auto) 5.6, Lymphocytes # (Auto) 1.7, Monocytes # (Auto) 0.6, Eosinophils # (Auto) 0.3, Basophils # (Auto) 0.1, Nucleated Red Blood Cells % (auto) 0.0, Anion Gap 8, Glomerular Filtration Rate 56.2, Calcium Level 9.0 CBC/BMP Laboratory Tests 08/24/19 05:28 ARTEMIO SANTOS MD Aug 24, 2019 13:39
[2019-08-24 14:00] VITALS: BP 141/59
[2019-08-24 19:40] VITALS: BP 146/73
[2019-08-24 22:00] VITALS: BP 103/63
[2019-08-24] MEDS: CLOPIDOGREL 75 MG TAB PO SCH (22:20)
[2019-08-25 06:00] VITALS: BP 146/89
[2019-08-25 06:07] LABS: BASO # 0.1 10^3/uL (0.0-0.2); BASO % 0.6 % (0.0-1.0); EOS # 0.3 10^3/uL (0.0-0.5); EOS % 3.2 % (0.0-3.0); HEMATOCRIT 42.9 % (36.0-47.0); LYMPH % 20.8 % (24.0-44.0); MEAN CORPUSCULAR HEMOGLOBIN 29.4 pg (27.0-33.0); MEAN CORPUSCULAR HGB CONC 32.6 g/dl (32.0-36.5); MEAN CORPUSCULAR VOLUME 90.1 fl (80.0-96.0); MONO # 0.7 10^3/uL (0.0-0.8); MONO % 7.7 % (0.0-5.0); NEUTROPHILS # 6.3 10^3/uL (1.5-8.5); NEUTROPHILS % 67.2 % (36.0-66.0); PLATELET COUNT, AUTOMATED 329 10^3/uL (150-450); RED BLOOD COUNT 4.76 10^6/uL (4.00-5.40); WHITE BLOOD COUNT 9.4 10^3/uL (4.0-10.0)
[2019-08-25 06:32] LABS: CALCIUM LEVEL 8.7 MG/DL (8.8-10.2); CREATININE FOR GFR 1.08 MG/DL (0.55-1.30); GLOMERULAR FILTRATION RATE 52.7 (>39); POTASSIUM SERUM 4.2 MEQ/L (3.5-5.1)
[2019-08-25] MEDS: LOSARTAN 50 MG TAB PO SCH (09:51)
[2019-08-25] MEDS: glipiZIDE (GLUCOTROL) 5 MG TAB PO SCH ×3 (09:51→22:00)
[2019-08-25] MEDS: ACETAMINOPHEN 650MG ER TAB (TYLENOL ARTHRITIS) PO SCH ×2 (09:51→21:59)
[2019-08-25 14:00] VITALS: BP 124/59
--- NOTE | 2019-08-25 17:51 | IPN ---
DATE: 08/25/2019 SUBJECTIVE: Patient had a 5 second pause at 2 o'clock this morning. She denies any chest pain, pressure, tightness, shortness of breath, lightheadedness or dizziness, was sleeping at the time. Did not drop her blood pressure. She is eating her breakfast, sitting a the bedside with her daughter. She is very hard of hearing, otherwise, no new complaints this morning. VITAL SIGNS: Temperature is 96.3, pulse 60, respiratory rate 16, blood pressure 124/59, 97% on room air. GENERAL: Awake, alert, oriented to person only, with severe dementia. No thyromegaly. No jugular venous distention (JVD). Moist mucous membranes. LUNGS: Clear to auscultation. No wheezing, rales or rhonchi. HEART: S1, S2. Sinus rhythm. No murmurs, rubs or gallops. ABDOMEN: Soft, nontender, nondistended. Positive bowel sounds. No hepatosplenomegaly. EXTREMITIES: No clubbing, cyanosis or pitting edema. LABORATORY DATA: White count 9.5, hemoglobin 14, hematocrit 42, platelet count 329. Sodium 138, potassium 4.2, chloride 103, bicarbonate 26, BUN 18, creatinine 1.08, glucose of 223. ASSESSMENT AND PLAN: A 74-year-old female with history of dementia at [facility], coronary artery disease (CAD), hypertensive heart disease, chronic kidney disease (CKD) stage III, reflux, dyslipidemia, admitted for atrial fibrillation with rapid ventricular response. CURRENT ISSUES: 1. Paroxysmal atrial fibrillation/sick sinus syndrome with episodes of 3-5 second pause. Evaluated initially by Dr. Angelo Kruger, with recommendations for pacer. Dr. Maciel has been consulted for pacemaker placement. Patient's Eliquis and Plavix have been held in anticipation of pacer placement on or Saturday. 2. Type 2 diabetes. On glipizide. Held metformin, Tradjenta. 3. Hypertensive heart disease. On losartan. Appears to be stable. 4. Well-controlled peripheral vascular disease. Patient's Eliquis and Plavix have been held due to anticipated pacer replacement on or Saturday. 5. Advanced dementia. Healthcare proxy has given consent for pacemaker placement. 6. Troponin leak. No acute ischemia. Most likely secondary to atrial fibrillation with rapid ventricular response. [facility]
[2019-08-25 22:00] VITALS: BP 136/83
[2019-08-26 06:00] VITALS: BP 130/58
[2019-08-26 06:34] LABS: BASO # 0.1 10^3/uL (0.0-0.2); BASO % 0.8 % (0.0-1.0); EOS # 0.3 10^3/uL (0.0-0.5); HEMATOCRIT 37.3 % (36.0-47.0); HEMOGLOBIN 12.2 g/dl (12.0-15.5); LYMPH # 1.7 10^3/uL (1.5-5.0); LYMPH % 21.3 % (24.0-44.0); MEAN CORPUSCULAR HEMOGLOBIN 29.3 pg (27.0-33.0); MEAN CORPUSCULAR HGB CONC 32.7 g/dl (32.0-36.5); MEAN CORPUSCULAR VOLUME 89.4 fl (80.0-96.0); MONO # 0.6 10^3/uL (0.0-0.8); MONO % 8.2 % (0.0-5.0); NEUTROPHILS # 5.1 10^3/uL (1.5-8.5); NEUTROPHILS % 65.2 % (36.0-66.0); PLATELET COUNT, AUTOMATED 287 10^3/uL (150-450); RED BLOOD COUNT 4.17 10^6/uL (4.00-5.40); WHITE BLOOD COUNT 7.8 10^3/uL (4.0-10.0)
[2019-08-26 06:57] LABS: CALCIUM LEVEL 8.4 MG/DL (8.8-10.2); CREATININE FOR GFR 1.03 MG/DL (0.55-1.30); GLOMERULAR FILTRATION RATE 55.6 (>39); POTASSIUM SERUM 3.9 MEQ/L (3.5-5.1)
[2019-08-26] MEDS: ACETAMINOPHEN 650MG ER TAB (TYLENOL ARTHRITIS) PO SCH ×2 (09:14→22:37)
[2019-08-26] MEDS: glipiZIDE (GLUCOTROL) 5 MG TAB PO SCH ×3 (09:15→22:37)
[2019-08-26] MEDS: LOSARTAN 50 MG TAB PO SCH (09:21)
[2019-08-26 10:34] VITALS: BP 109/60
[2019-08-26 14:00] VITALS: BP 121/61
--- NOTE | 2019-08-26 14:41 | IPN ---
DATE OF SERVICE: 08/26/2019 Patient has not had any sinus problems overnight. Has no complaints this morning. Denies any chest pain, pressure, tightness, lightheadedness, shortness of breath, lying flat on the bed, no complaints this morning. She is very hard of hearing and demented but able to converse appropriately. Telemetry shows sinus bradycardia, pulse of 52, sinus. PHYSICAL EXAM: Temperature 96.7, pulse 52, respiratory 16, blood pressure 130/58, 96% on room air. Generally, patient is in no respiratory distress. Answers questions appropriately. Oriented only to herself. LUNGS: Are diminished but clear. HEART: S1, S2, in sinus bradycardia. ABDOMEN: Soft, nontender, obese abdomen. Positive bowel sounds all four quadrants. EXTREMITIES: No cyanosis, clubbing, or pitting edema. LABORATORY DATA: White count 7.8, hemoglobin 12, hematocrit 37, platelet count 287. Sodium 138, potassium 3.9, chloride 104, bicarbonate 25, BUN 19, creatinine 1, glucose of 198. ASSESSMENT AND PLAN: This is a 74-year-old female with history of dementia, a [facility] resident, coronary artery disease (CAD), hypertensive heart disease, chronic kidney disease (CKD) III, reflux, dyslipidemia, admitted for atrial fibrillation with rapid ventricular response (RVR) and found to have sick sinus syndrome with episodes of sinus pauses of 3-5 seconds. CURRENT ISSUES ARE FOLLOWS: 1. Sick sinus syndrome. Initially admitted for paroxysmal atrial fibrillation with RVR, was found to have 3-5 second pauses on telemetry. Patient was symptomatic, complained of chest tightness, some shortness of breath, which resolved with resumption of rate control. Pacemaker to be placed by Dr. Maciel on . Patient's Eliquis and Plavix have been held in anticipation of this procedure. 2. Peripheral vascular disease. Eliquis and Plavix have been held due to pacer placement on . 3. Advanced dementia. Patient's healthcare proxy, her daughter, will be giving consent for pacemaker placement. 4. Troponin leak. No acute ischemia. Most likely secondary to atrial fibrillation with RVR. 5. Hypertensive heart disease. On losartan. 6. Type 2 diabetes. On glipizide. Held metformin and Tradjenta. [facility]
[2019-08-26 22:00] VITALS: BP 143/71
[2019-08-26] MEDS: ASCORBIC ACID 250 MG TAB PO SCH (22:37)
[2019-08-27 06:00] VITALS: BP 120/58
[2019-08-27] MEDS ORDERED: ceFAZolin SOD 1 GM in D5W MINI-BAG PLUS 50 ML IV ONE ×2 (06:00→18:30)
--- NOTE | 2019-08-27 06:24 | ECHO ---
DATE OF STUDY: 08/24/2019 REFERRING PHYSICIAN: Dr. Ynes Kinney INDICATION: Cardiac dysrhythmia unspecified. HEIGHT: 160 cm. WEIGHT: 77 kg. 2-D MEASUREMENTS: Ventricular septum: 0.96 cm Posterior wall: 0.90 cm Left ventricle diastole: 4.7 cm Aortic root: 2.7 cm Left atrium: 4.2 cm Left atrial volume index: 32 Inferior vena cava: 2.2 cm DOPPLER MEASUREMENTS: Aortic valve velocity: 197 cm/sec LVOT velocity: 88.7 cm/sec LVOT VTI: 20.0 cm No aortic regurgitation Mild mitral regurgitation Mitral E velocity: 95.3 cm/sec Mitral A velocity: 65.2 cm/sec Mitral deceleration time: 289 ms Mild tricuspid regurgitation Trace pulmonic regurgitation MITRAL ANNULAR TISSUE DOPPLER: E prime lateral: 8.7 cm/sec E prime septal: 8.6 cm/sec DESCRIPTION: The rhythm was sinus rhythm and sinus bradycardia observed with some PVCs. Image quality was fair. No pericardial effusion. CONCLUSIONS: 1. Normal left ventricle internal dimensions and wall thickness. Normal regional LV wall motion and wall thickening. Normal LV systolic function. LVEF 65% by visual estimate. Normal LV diastolic function for age. 2. Mild aortic valve sclerosis of a 3-cuspid aortic valve. No aortic regurgitation. 3. Mild mitral annular calcification with mild mitral regurgitation. 4. Mild left atrial dilatation. 5. Otherwise normal echocardiogram Doppler findings.
[2019-08-27] MEDS: NS 1,000 ML IV SCH ×2 (07:46→16:00)
[2019-08-27 09:14] LABS: BASO # 0.1 10^3/uL (0.0-0.2); BASO % 0.7 % (0.0-1.0); EOS # 0.2 10^3/uL (0.0-0.5); EOS % 2.8 % (0.0-3.0); HEMATOCRIT 39.3 % (36.0-47.0); HEMOGLOBIN 12.7 g/dl (12.0-15.5); LYMPH # 1.7 10^3/uL (1.5-5.0); LYMPH % 22.7 % (24.0-44.0); MEAN CORPUSCULAR HEMOGLOBIN 28.9 pg (27.0-33.0); MEAN CORPUSCULAR HGB CONC 32.3 g/dl (32.0-36.5); MEAN CORPUSCULAR VOLUME 89.3 fl (80.0-96.0); MONO # 0.5 10^3/uL (0.0-0.8); MONO % 6.5 % (0.0-5.0); NEUTROPHILS % 66.9 % (36.0-66.0); PLATELET COUNT, AUTOMATED 283 10^3/uL (150-450); WHITE BLOOD COUNT 7.5 10^3/uL (4.0-10.0)
[2019-08-27] MEDS: glipiZIDE (GLUCOTROL) 5 MG TAB PO SCH ×2 (09:14→16:00)
[2019-08-27] MEDS: ASCORBIC ACID 250 MG TAB PO SCH (09:14)
[2019-08-27] MEDS: ACETAMINOPHEN 650MG ER TAB (TYLENOL ARTHRITIS) PO SCH (09:14)
[2019-08-27] MEDS: LOSARTAN 50 MG TAB PO SCH (09:17)
[2019-08-27 09:39] LABS: CALCIUM LEVEL 8.9 MG/DL (8.8-10.2); CREATININE FOR GFR 1.02 MG/DL (0.55-1.30); GLOMERULAR FILTRATION RATE 56.2 (>39); POTASSIUM SERUM 3.9 MEQ/L (3.5-5.1)
[2019-08-27 14:00] VITALS: BP 122/66
--- NOTE | 2019-08-27 14:39 | IPN ---
DATE: 08/27/2019 The patient continues to have episodes of sinus bradycardia, ventricular rate of 52 to 57 with no changes in vital signs. She was documented to have sinus pause, 3 to 5 seconds, as well as atrial fibrillation with rapid ventricular response, ventricular rate of 139 on admission. Currently nothing by mouth and awaiting pacemaker placement at 4:30 this afternoon. The patient otherwise has no complaints of chest pain, pressure, tightness, shortness of breath, lightheadedness or dizziness. No syncopal episodes. She is doing crossword puzzles at the bedside. PHYSICAL EXAMINATION: Temperature 96.5, pulse 52, respiratory rate 16, blood pressure 128/58, 96% on room air. GENERAL: The patient is demented but awake, alert, oriented to person. Answers questions and is cooperative. She is disoriented to place and time. LUNGS: Clear to auscultation with no wheezing, rales or rhonchi. HEART: S1, S2. Sinus bradycardia. ABDOMEN: Soft, nontender, nondistended. Positive bowel sounds times four quadrants. EXTREMITIES: No cyanosis, clubbing or any pitting edema. LABORATORY DATA: White count 7.5, hemoglobin 12, hematocrit 39, platelet count 283. Sodium 139, potassium 3.9, chloride 105, bicarbonate 25, BUN 70, creatinine 1, glucose 219. ASSESSMENT AND PLAN: This is a 74-year-old female with a history of dementia, [facility] resident, coronary artery disease, hypertensive heart disease, chronic kidney disease stage III, reflux, dyslipidemia, who was admitted for atrial fibrillation with rapid ventricular response, found to have sick sinus syndrome with episodes of sinus pauses of 3 to 5 seconds. IMPRESSION: 1. Sick sinus syndrome. Initially admitted with paroxysmal atrial fibrillation with rapid ventricular response and on telemetry was found to have 3 to 5 second pauses without rate control medications. The patient was symptomatic and complained of chest tightness, shortness of breath, which resolved. Pacemaker is to be placed by Dr. Maciel today at 4:30 p.m. The patient's Eliquis and Plavix have been held in anticipation of this procedure. 2. Peripheral vascular disease. Plavix held due to pacer placement today. 3. Advanced dementia. Healthcare proxy will be giving consent. 4. Troponinemia due to atrial fibrillation with rapid ventricular response on admission. 5. Hypertensive heart disease. Controlled on losartan. 6. Type 2 diabetes, currently nothing by mouth and hypoglycemic protocol while awaiting pacer placement. [facility]
[2019-08-27 20:00] VITALS: BP 114/68
[2019-08-27] MEDS ORDERED: fentaNYL 100 MCG/2 ML INJECTION (J3010) As Ordered ONE (21:17)
[2019-08-27] MEDS ORDERED: ONDANSETRON 4MG/2ML VIAL (J2405) As Ordered ONE (21:17)
[2019-08-27] MEDS ORDERED: dexameTHASONE 4 MG/ML 1ML VIAL (J1100) As Ordered ONE (21:17)
[2019-08-27] MEDS ORDERED: MIDAZOLAM INJ 2 MG/2 ML VIAL (J2250) As Ordered ONE (21:17)
[2019-08-27] MEDS ORDERED: ROCURONIUM BROMIDE 50 MG/5 ML VIAL As Ordered ONE (21:17)
[2019-08-27] MEDS ORDERED: PROPOFOL 200 MG/20 ML VIAL As Ordered ONE (21:17)
[2019-08-27] MEDS ORDERED: LIDOCAINE 2% INJ 100 MG/5 ML SDV (FOR ANES.) As Ordered ONE (21:17)
[2019-08-27] MEDS ORDERED: ISOVUE-300 61% 50ML VIAL (Q9967) As Ordered ONE (21:40)
[2019-08-27] MEDS ORDERED: MUPIROCIN 2% OINT 22 GM TUBE As Ordered ONE (21:40)
[2019-08-27] MEDS ORDERED: LIDOCAINE 1% SDV INJ 30 ML VIAL As Ordered ONE (21:40)
[2019-08-27] MEDS ORDERED: ceFAZolin 1GM INJ (J0690 PER 500MG) As Ordered ONE (22:28)
[2019-08-28] MEDS ORDERED: ROCURONIUM BROMIDE 50 MG/5 ML VIAL As Ordered ONE (00:51)
[2019-08-28] MEDS ORDERED: LR 1,000 ML IV SCH (01:15)
[2019-08-28] MEDS ORDERED: fentaNYL 100 MCG/2 ML INJECTION (J3010) IV PRN (01:15)
[2019-08-28] MEDS ORDERED: ONDANSETRON 4MG/2ML VIAL (J2405) IV PRN (01:15)
[2019-08-28] MEDS ORDERED: METOCLOPRAMIDE INJ 10MG/2ML VIAL (J2765) IV PRN (01:15)
[2019-08-28] MEDS ORDERED: PERCOCET 5MG/325MG TAB PO PRN (01:15)
[2019-08-28 02:00] VITALS: BP 165/82
[2019-08-28] MEDS ORDERED: [UNRECOGNIZED DRUG - REMARK] XX SCH (02:15)
[2019-08-28] MEDS: ASCORBIC ACID 250 MG TAB PO SCH ×3 (02:20→20:44)
[2019-08-28] MEDS: ACETAMINOPHEN 650MG ER TAB (TYLENOL ARTHRITIS) PO SCH ×3 (02:20→20:44)
[2019-08-28] MEDS: glipiZIDE (GLUCOTROL) 5 MG TAB PO SCH ×4 (02:20→20:44)
[2019-08-28 04:00] VITALS: BP 144/82
[2019-08-28 05:52] LABS: BASO % 0.1 % (0.0-1.0); HEMATOCRIT 39.4 % (36.0-47.0); HEMOGLOBIN 12.9 g/dl (12.0-15.5); LYMPH # 0.7 10^3/uL (1.5-5.0); LYMPH % 6.1 % (24.0-44.0); MEAN CORPUSCULAR HEMOGLOBIN 29.3 pg (27.0-33.0); MEAN CORPUSCULAR HGB CONC 32.7 g/dl (32.0-36.5); MEAN CORPUSCULAR VOLUME 89.5 fl (80.0-96.0); MONO # 0.1 10^3/uL (0.0-0.8); MONO % 0.5 % (0.0-5.0); NEUTROPHILS # 11.2 10^3/uL (1.5-8.5); NEUTROPHILS % 92.9 % (36.0-66.0); PLATELET COUNT, AUTOMATED 302 10^3/uL (150-450); WHITE BLOOD COUNT 12.1 10^3/uL (4.0-10.0)
[2019-08-28 06:12] LABS: CALCIUM LEVEL 8.9 MG/DL (8.8-10.2); CREATININE FOR GFR 1.08 MG/DL (0.55-1.30); GLOMERULAR FILTRATION RATE 52.7 (>39); POTASSIUM SERUM 4.6 MEQ/L (3.5-5.1)
--- NOTE | 2019-08-28 07:05 | RO ---
DATE OF PROCEDURE: 08/27/2019 PREOPERATIVE DIAGNOSIS: Sick sinus syndrome/tachycardia-bradycardia syndrome. POSTOPERATIVE DIAGNOSIS: Sick sinus syndrome/tachycardia-bradycardia syndrome. FINDINGS: Sick sinus syndrome/tachycardia-bradycardia syndrome. PROCEDURE PERFORMED: Implantation of a permanent dual chamber pacemaker (Medtronic). SURGEON: Yuan Maciel MD ADJUNCT SPANISH INSTRUCTOR: None. ANESTHESIA: Lidocaine 1% local, monitored anesthetic care. SPECIMENS: None. ESTIMATED BLOOD LOSS: 25 mL. BLOOD PRODUCTS REPLACED: None. DRAINS: None. COMPLICATIONS: None. PROCEDURE DESCRIPTION: The patient was prepped and draped over the left pectoral region. 3M Ioban film was applied. Lidocaine 1% was used for local anesthetic. Venous access was obtained with a micropuncture needle under fluoroscopic guidance aiming towards the first rib. However, the guidewire would not feed correctly into the innominate vein. I then obtained venous access using anatomic landmarks walking the needle under the clavicle and obtained venous access. This was then guidewire exchanged for a guidewire that came with one of the 7 Danish sheaths. Next, an incision approximately 2.5 inches in length was made with a Peak Plasma blade 1 cm below the entry site of the guidewire. The Peak Plasma blade was used to get through the fatty layer and the fibrous Marialuisa fascia. The pacemaker pocket was then formed in a caudal direction using blunt dissection using two fingers to separate the prepectoral fascia from the Marialuisa fascia. Next, the guidewire was pulled through the skin into the incision site. At this point, I was able to palpate the guidewire within the pocket and noticed that it was very close to the clavicle. I did not want to introduce the introducers and place the pacemaker leads that close to the clavicle. I therefore obtained under fluoroscopic guidance a separate venous access at the level of the pectoral muscle using a micropuncture needle aiming for the first rib, which was successful. This was then guidewire exchanged for one of the guidewires that came with the 7 Danish sheath. Then I removed the first guidewire. I then used shared guidewire technique to introduce a second guidewire alongside the first guidewire. A 7 Danish sheath was placed over one of the guidewires and was used for vein access for the right ventricle lead. The right ventricle lead was placed into the right ventricular apex position with a total of 8 turns. This position was found to be electrically and anatomically satisfactory and no diaphragm stimulation could be palpated on either side at 8 volts high output pacing. The 7 Danish sheath was then broken apart and removed. Next, I placed another 7 Danish sheath over the other guidewire and introduced it into the vein. This was used for vein access for the right atrial lead. The right atrial lead was then placed into the left atrial appendage position and secured with a total of 10 turns. This position was found to be electrically and anatomically satisfactory and no diaphragm stimulation could be palpated on either side at 8 volts high output pacing. The sheath was then broken apart and removed. Next, the atrial and ventricular leads were secured to the pectoral muscle using the supplied tie down sleeves using two individual sutures on each sleeve to secure it to the pectoral muscle using #0 Ethibond suture material. Next, another #0 Ethibond suture was placed separately to the pectoral muscle to serve as the tie down for the pacemaker pulse generator. Next, I took a medium sized TYRX antimicrobial envelope and cut it into six pieces which were placed into the pacemaker pocket. Next, the terminal pins of the ventricle and atrial leads were placed into their respective ports in the header of the pacemaker pulse generator and each one was secured by tightening the set screws with the hex screwdriver. The excess lead material was then coiled underneath the pacemaker pulse generator and placed along with the pacemaker pulse generator into the pacemaker pocket with the excess lead material below and the pacemaker pulse generator on top. The pacemaker pulse generator was then secured to the pectoral muscle with the previously placed #0 Ethibond suture. The deep layer was closed using individual sutures consisting of #2-0 Vicryl. A few additional #3-0 Vicryl sutures were used to help approximate the more superficial layer. The skin was closed using tahir. A dressing was then placed over the incision and a pressure dressing was applied and a left arm sling was applied. The patient tolerated the procedure well without any immediate complications. The pacemaker pulse generator implanted was a Lovli Kierra XT DR MRI Dayday Scan, which had model number W1DR01 with serial number [id number]. The right ventricle lead implanted was a Medtronic, model 4076-50 cm with serial number [id number]. Testing in bipolar configuration with the pulse analyzer in the operating room in bipolar configuration for the right ventricular lead showed capture threshold of 0.375 volts at 0.5 ms with lead impedance of 703 ohms and R wave amplitude of 11.125 mV. Device base testing in the operating room for the right ventricle lead showed R waves of 11.5 mV with lead impedance of 684 ohms and capture threshold of 0.5 V at 0.4 ms. The right atrial lead implanted was a Lovli, model 4076-45 cm with serial number [id number]. Testing in the operating room with the pulse analyzer in bipolar configuration for the right atrial lead showed a showed a capture threshold of 0.75 volts at 0.4 ms with lead impedance of 779 ohms with P wave amplitude of 3.25 mV. Device based testing in the operating room for the right atrial lead in bipolar configuration showed P waves of 4.0 mV with lead impedance of 760 ohms and capture threshold of 1.0 V at 0.4 ms. [facility]
[2019-08-28] MEDS ORDERED: AMIODARONE HCL 150 MG in IV 1 EA IV ONE (08:30)
[2019-08-28] MEDS ORDERED: AMIODARONE HCL 150 MG/100 ML PREMIXED BAG (NEXTERONE) As Ordered ONE (08:32)
--- NOTE | 2019-08-28 08:40 | REP ---
Portable chest x-ray: Single view. History: Rule out pneumothorax. Comparison study: August 22, 2019. Findings: A bipolar pacemaker is been inserted into the right heart via the left side. There are linear densities in the left perihilar root region consistent with plate-like atelectasis. These were not apparent in August 22, 2019. There is no evidence of pneumothorax. There is some discoid atelectasis in the lung bases. No pleural effusion is seen. Heart is not enlarged. Impression: No pneumothorax seen. Pacemaker inserted. Left perihilar and base plate-like atelectasis. Electronically Signed by Fidel Pollard MD 08/28/2019 08:31 A
--- NOTE | 2019-08-28 08:41 | REP ---
Chest x-ray: Two views. 07:47 a.m. History: Post pacemaker. Comparison is made with the 12th 52 a film on this date. Findings: Bipolar pacemaker is in place. There is some plate-like atelectasis in the left base. The previously noted atelectatic changes in the upper lobe have resolved. There is no evidence of pneumothorax or hydrothorax. Right lung is clear. Impression: Discoid atelectasis left lower lobe. Pacemaker in place. No evidence of pneumothorax. No hydrothorax. Electronically Signed by Fidel Pollard MD 08/28/2019 08:32 A
--- NOTE | 2019-08-28 08:42 | REP ---
Chest x-ray: 11 views. Intra procedural imaging. 12 minutes 41 seconds of fluoroscopy time is reported. Findings: A sequence of 11 last image hold fluoroscopically obtained spot radiographs of the chest document pacemaker lead position. Electronically Signed by Fidel Pollard MD 08/28/2019 08:33 A
[2019-08-28] MEDS: AMIODARONE 200 MG TAB (PACERONE) PO SCH ×4 (08:58→20:43)
[2019-08-28] MEDS: LOSARTAN 50 MG TAB PO SCH (08:59)
--- NOTE | 2019-08-28 10:05 | ECGEPIP ---
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
--- NOTE | 2019-08-28 10:15 | ECGEPIP ---
[facility] Test Date: 2019-08-28 Pat Name: SREEDHAR MONTIEL Department: Room: [place] [address] Gender: Female Ben Day Artist: OSWALDO : 1945 Requested By: Yuan Maciel Order Number: [id number] Reading MD: Sonal Hugn Measurements Intervals [place] Rate: 66 P: 38 [place]: 180 QRS: 16 QRSD: 83 T: 4 QT: 392 QTc: 412 Interpretive Statements SINUS RHYTHM NONSPECIFIC T-WAVE ABNORMALITY SIMILAR TO EARLIER SAME DATE Electronically Signed on 08-28-2019 10:14:55 EST by Sonal Hung
[2019-08-28] MEDS ORDERED: SLF 3 ML SYR IV PRN (11:30)
[2019-08-28 12:00] VITALS: BP 120/65
[2019-08-28] MEDS ORDERED: LIDOCAINE 1% MDV 20ML VIAL As Ordered ONE (13:18)
[2019-08-28 16:00] VITALS: BP 132/76
[2019-08-28] MEDS: SLF 3 ML SYR IV SCH ×2 (16:24→20:44)
--- NOTE | 2019-08-28 17:26 | ECHO ---
DATE OF PROCEDURE: 08/28/2019 REFERRING PHYSICIAN: Dr. Yuan aMciel INDICATION: Chest pain, unspecified. HEIGHT: 63 inches. WEIGHT: 77 kg. 2-D MEASUREMENTS: Left atrium 3.6 cm Ventricular septum: 1.00 cm Posterior wall: 0.92 cm Left ventricle diastole: 4.8 cm Aortic root: 2.6 cm Inferior vena cava 1.95 cm DOPPLER MEASUREMENTS: Aortic valve velocity: 175 cm/sec LVOT velocity: 112 cm/sec LVOT VTI: 24.6 cm Very mild mitral regurgitation Mitral E velocity: 99.3 cm/sec Mitral A velocity: 88 cm/sec Mitral deceleration time: 211 ms Very mild tricuspid regurgitation Estimated right ventricle systolic pressure 22 mmHg assuming a pressure of 5 mmHg. Pulmonary velocity 141 cm/s Pulmonary artery acceleration time 141 m/s MITRAL ANNULAR TISSUE DOPPLER: E prime septal: 6.2 cm/sec E prime septal: 5.7 cm/sec DESCRIPTION: The rhythm appeared to be predominately sinus rhythm. Image quality was fair. This is a 2D, M-mode, color flow and pulse way Doppler examination mitral annular tissue Doppler No pericardial effusion. CONCLUSIONS: 1. Normal left ventricle internal dimensions and wall thickness. Normal regional LV wall motion and wall thickening. Normal LV systolic function. LVEF 60% by visual estimate. Normal LV diastolic function. 2. No pericardial effusion. 3. Mild aortic valve sclerosis of a 3-cuspid aortic valve. No aortic regurgitation. 4. Very mild mitral annular calcification. Very mild mitral regurgitation. 5. Normal left atrial size. 6. Presence of endocardial atrial and right ventricular pacemaker leads.
[2019-08-28] MEDS ORDERED: SODIUM CHLORIDE 0.9% INJ 10 ML SYR IV PRN (17:45)
--- NOTE | 2019-08-28 18:43 | REP ---
MIDLINE CATHETER INSERTION WITH SITE MARY The procedure was performed under the direct supervision of Dr. Pollard. The risks and benefits of the procedure were explained and informed consent was obtained by the health care proxy. The right basilic vein was localized using ultrasound guidance. The skin was prepped and draped in a sterile fashion. 1% lidocaine was used as a local anesthetic. Using ultrasound guidance the basilic vein was cannulated and a 0.018 guidewire was inserted. The needle was removed and a 5.5 Azerbaijani dilator and peel-away sheath was inserted over the guide wire. A 5.5 Azerbaijani dual lumen catheter was left at a length of 16.5 cm. The dilator was removed and the catheter was inserted over the guide wire. The peel-away sheath was removed and the catheter was flushed with heparinized saline as per Hospital protocol. The catheter was affixed to the skin and a sterile dressing was applied. The patient tolerated the procedure well and there were no immediate complications. After the appropriate amount of monitored convalescence the patient was discharged from the department. Electronically Signed by ALLEY Ballard 08/28/2019 03:34 P Electronically Signed by Fidel Pollard MD 08/28/2019 06:35 P
[2019-08-28 20:00] VITALS: BP 156/70
[2019-08-28] MEDS: SODIUM CHLORIDE 0.9% INJ 10 ML SYR IV SCH (20:43)
[2019-08-29] VITALS: BP 127/60
[2019-08-29 04:00] VITALS: BP 146/66
[2019-08-29 06:14] LABS: BASO % 0.2 % (0.0-1.0); EOS % 0.2 % (0.0-3.0); HEMATOCRIT 36.3 % (36.0-47.0); HEMOGLOBIN 11.7 g/dl (12.0-15.5); LYMPH # 1.5 10^3/uL (1.5-5.0); MEAN CORPUSCULAR HEMOGLOBIN 28.9 pg (27.0-33.0); MEAN CORPUSCULAR HGB CONC 32.2 g/dl (32.0-36.5); MEAN CORPUSCULAR VOLUME 89.6 fl (80.0-96.0); MONO # 0.7 10^3/uL (0.0-0.8); MONO % 5.9 % (0.0-5.0); NEUTROPHILS # 9.8 10^3/uL (1.5-8.5); NEUTROPHILS % 81.1 % (36.0-66.0); PLATELET COUNT, AUTOMATED 232 10^3/uL (150-450); RED BLOOD COUNT 4.05 10^6/uL (4.00-5.40); WHITE BLOOD COUNT 12.1 10^3/uL (4.0-10.0)
[2019-08-29 06:32] LABS: CALCIUM LEVEL 8.9 MG/DL (8.8-10.2); CREATININE FOR GFR 1.14 MG/DL (0.55-1.30); GLOMERULAR FILTRATION RATE 49.5 (>39); POTASSIUM SERUM 4.7 MEQ/L (3.5-5.1)
[2019-08-29] MEDS: SODIUM CHLORIDE 0.9% INJ 10 ML SYR IV SCH ×2 (06:33→17:52)
[2019-08-29 08:00] VITALS: BP 143/67
[2019-08-29] MEDS: glipiZIDE (GLUCOTROL) 5 MG TAB PO SCH ×3 (09:43→20:19)
[2019-08-29] MEDS: LOSARTAN 50 MG TAB PO SCH (09:44)
[2019-08-29] MEDS: AMIODARONE 200 MG TAB (PACERONE) PO SCH ×4 (09:44→20:20)
[2019-08-29] MEDS: ACETAMINOPHEN 650MG ER TAB (TYLENOL ARTHRITIS) PO SCH ×2 (09:44→20:19)
[2019-08-29] MEDS: ASCORBIC ACID 250 MG TAB PO SCH ×2 (09:44→20:19)
[2019-08-29 12:00] VITALS: BP 140/68
[2019-08-29 16:00] VITALS: BP 143/69
[2019-08-29 20:00] VITALS: BP 142/70
--- NOTE | 2019-08-29 21:50 | IPN ---
DATE: 08/28/2019 Last night, patient had an episode of atrial fibrillation with rapid ventricular response, given one dose of intravenous (IV) amiodarone, but did not have any IV access. Patient complained of some chest pressure and tightness for a few minutes, which resolved. She says that without moving, she has no pain currently status post pacemaker. Patient did not have any bradycardic episode, remained in regular rhythm at 61-65. Patient is currently on oral amiodarone 200 mg four times a day.. Deferred to cardiology regarding the timing of anticoagulation. VITAL SIGNS: Temperature 97.8, pulse 65 irregular, atrial fibrillation, respiratory 16, blood pressure 120/65, 99% on room air. GENERAL: Patient is awake, alert, oriented to herself. She is very cooperative. Has a left arm sling status post pacemaker. Site is dry. No redness. No significant tenderness. HEART: S1, S2. Irregularly irregular. LUNGS: Clear to auscultation. ABDOMEN: Obese, soft, nontender, nondistended. EXTREMITIES: No cyanosis or clubbing. White count 12.1, hemoglobin 12, hematocrit 39, platelet count at 302. Sodium 136, potassium 4.6, chloride 106, bicarbonate 23, BUN 16, creatinine 1, glucose of 351. IMAGING STUDIES: Chest x-ray 08/28/2019: Discoid atelectasis in the left lower lobe. Pacemaker. No evidence of pneumothorax or hydrothorax. ASSESSMENT AND PLAN: This is a 74-year-old female with history of dementia, resides at [facility], hypertensive heart disease, coronary artery disease (CAD), chronic kidney disease stage III, reflux, dyslipidemia, admitted for atrial fibrillation with rapid ventricular response, was found on telemetry to have sick sinus syndrome with 3-5 second pause requiring a pacemaker placement. Patient underwent pacer placement on 08/27/[address] Maciel. Overnight, she developed atrial fibrillation with rapid ventricular response required amiodarone due to not having an IV access. Patient is currently on amiodarone four times a day orally. CURRENT ISSUES: 1. Tachy-fay syndrome/sick sinus syndrome status post pacemaker. Patient's atrial fibrillation was uncontrolled overnight. She did receive amiodarone four times a day for chemical cardioversion. Will defer to coal hauler operator as to the timing of resuming her Eliquis and Plavix. 2. Peripheral arterial disease. Off of Plavix due to pacer placement yesterday. 3. Advanced dementia. She resides at [facility]. 4. Chronic kidney disease stage III. At baseline creatinine. Renally dosing all medications. 5. Hypertensive heart disease. Currently controlled. Did not suffer any decompensation, even with uncontrolled heart rate yesterday. 6. Complains of chest pain secondary to uncontrolled atrial fibrillation, which is currently improved. [facility]ULL[facility]
[2019-08-30] VITALS: BP 139/65
[2019-08-30 04:00] VITALS: BP 152/74
[2019-08-30] MEDS: SODIUM CHLORIDE 0.9% INJ 10 ML SYR IV SCH ×2 (05:59→17:51)
[2019-08-30 08:00] VITALS: BP 179/84
[2019-08-30] MEDS: ACETAMINOPHEN 650MG ER TAB (TYLENOL ARTHRITIS) PO SCH ×2 (08:10→20:23)
[2019-08-30] MEDS: glipiZIDE (GLUCOTROL) 5 MG TAB PO SCH ×3 (08:10→20:23)
[2019-08-30] MEDS: AMIODARONE 200 MG TAB (PACERONE) PO SCH ×4 (08:10→20:23)
[2019-08-30] MEDS: ASCORBIC ACID 250 MG TAB PO SCH ×2 (08:11→20:23)
[2019-08-30] MEDS: LOSARTAN 50 MG TAB PO SCH (08:11)
--- NOTE | 2019-08-30 08:31 | IPN ---
DATE: 08/29/2019 Patient has no complaints of pain, status post pacer placement. Patient's heart rate is significantly improved, currently 60, regular rhythm, on amiodarone. No other issues, per nursing, aside from confusion yesterday requiring a sitter. Patient is cooperative, not belligerent, not attempting to get out of bed. Temperature 97.5, pulse 60, respiratory rate 18, blood pressure 140/68, 99% on room air. Generally, patient is confused, demented, but follows commands. She is very sleepy and turned over to her right side and was not very interactive this morning. No jugular venous distention (JVD). No thyromegaly. Status post pacer placement. Arm in a slight currently. Heart: S1, S2, irregular. Lungs: Diminished but clear to auscultation. Abdomen: Obese, soft, nontender, nondistended. Positive bowel sounds. Extremities: No pitting edema. LABORATORY DATA: Microbiology and imaging studies have been reviewed. ASSESSMENT AND PLAN: A 74-year-old female with a history of dementia, [facility] resident, coronary artery disease, hypertensive heart disease, chronic kidney disease, stage III, reflux, dyslipidemia, admitted for atrial fibrillation with rapid ventricular response (RVR), found to have sick sinus syndrome with episodes of sinus pauses 3-5 seconds and tachybrady. IMPRESSION: 1. Sick sinus syndrome. Initially admitted for paroxysmal atrial fibrillation with RVR and telemetry, found to have 3-5 second pauses on no rate control medication. Patient was symptomatic with atrial fibrillation with RVR at the alf, complained of chest pain. Pacer was placed by Dr. Maciel on 08/27/2019, postop day #2. Currently with a hand in a sling. Evaluated with echocardiogram showing ejection fraction (EF) of 60%, mild mitral regurgitation (MR). Will continue to monitor on telemetry and possible discharge on Saturday. 2. Atrial fibrillation with RVR. Currently sinus rhythm. On amiodarone, currently 200 mg four times a day until 09/01/2019, then on the 09/02/2019 will start on 200 mg daily. 3. Hypertension. On losartan. 4. Type 2 diabetes. On glipizide, sliding scale, consistent carbohydrate diet. Code Status: DO NOT RESUSCITATE (DNR), DO NOT INTUBATE (DNI). MTDD
[2019-08-30 12:00] VITALS: BP 142/82
[2019-08-30 16:00] VITALS: BP 130/70
[2019-08-30 20:00] VITALS: BP 142/68
[2019-08-31] VITALS: BP 136/74
[2019-08-31 04:00] VITALS: BP 134/68
--- NOTE | 2019-08-31 05:34 | IPN ---
DATE OF VISIT: 08/30/2019 HISTORY: The patient is requiring a sitter but has been cooperative since last evening. Rate control currently. Sinus rhythm on Amiodarone. Pacer is seen in the left upper anterior chest. Sling is noted. No new complaints. Pain is well controlled. Saturating 100% on room air. No cough, shortness of breath. No dizziness or lightheadedness. Vital signs: Temperature 97.2, pulse 60, respiratory 16, blood pressure 179/80, 100% on room air. General: Awake, alert and oriented to person. Demented, follows commands, very sleepy and not very interactive. Neck: No jugular venous distention (JVD) or thyromegaly. Chest: Pacer placed in the left anterior chest. Heart: S1, S2, currently regular rate and rhythm. Lungs: Clear to auscultation. No wheezing, rales or rhonchi. Abdomen: Soft, nontender, nondistended. Positive bowel sounds. Extremities: No pitting edema, cyanosis or any clubbing. LABORATORY DATA: Microbiology, imaging studies have been refused. ASSESSMENT AND PLAN: 74-year-old female with dementia is a [facility] resident presents with coronary artery disease, hypertensive heart disease, chronic kidney disease (CKD) stage III, reflux, dyslipidemia, admitted for atrial fibrillation with rapid ventricular response (RVR), found to have sick sinus syndrome due to sinus pauses 3-5 seconds. IMPRESSION: 1. Sick sinus syndrome with rapid atrial fibrillation with RVR, as well as sinus pauses. The patient is status post pacemaker on 08/27, currently with her arm in a sling, evaluated by echocardiogram, ejection fraction (EF) of 60%, mild mitral regurgitation (MR) managed by cardiology, atrial fibrillation with RVR resolved currently sinus rhythm on Amiodarone four times daily until 09/01, then once daily 09/02. 2. Hypertension on Losartan. 3. Type 2 diabetes on glipizide, sliding scale. 4. Consistent carbohydrate diet. Code Status: DO NOT RESUSCITATE (DNR), DO NOT INTUBATE (DNI). . MTDD
[2019-08-31] MEDS: SODIUM CHLORIDE 0.9% INJ 10 ML SYR IV SCH (06:00)
[2019-08-31 08:00] VITALS: BP 157/85
[2019-08-31] MEDS ORDERED: AMIO200T PO ×2 (08:03)
[2019-08-31 09:14] VITALS: BP 157/84
[2019-08-31] MEDS: ASCORBIC ACID 250 MG TAB PO SCH (09:14)
[2019-08-31] MEDS: LOSARTAN 50 MG TAB PO SCH (09:14)
[2019-08-31] MEDS: glipiZIDE (GLUCOTROL) 5 MG TAB PO SCH (09:14)
[2019-08-31] MEDS: AMIODARONE 200 MG TAB (PACERONE) PO SCH ×2 (09:14→13:27)
[2019-08-31] MEDS: ACETAMINOPHEN 650MG ER TAB (TYLENOL ARTHRITIS) PO SCH (09:14)
--- NOTE | 2019-08-31 15:58 | DSES ---
DATE OF ADMISSION: 08/22/2019 DATE OF DISCHARGE: 08/31/2019 CONSULTANTS: Dr. Yuan Maciel, hatchery attendant. Status post pacemaker placement on 08/28/2019, Dr. Kruger, hatchery attendant. PRIMARY DISCHARGE DIAGNOSES: 1. Sick sinus syndrome with atrial fibrillation with rapid ventricular rate and sinus pauses necessitating pacemaker placement on 08/28/2019. 2. Chronic advanced dementia. 3. Hypertension. 4. Type 2 diabetes. DISCHARGE MEDICATIONS: - amiodarone 200 mg four times a day on 08/31/2019 and 09/01/2019, then discontinue on 09/02/2019 - amiodarone 200 mg daily from 09/02/2019 - acetaminophen 650 mg every 12 hours - acetaminophen 650 mg every 4 hours as needed - Eliquis 5 mg twice a day - bisacodyl 10 mg per rectum as needed for constipation - Plavix 75 mg daily - glipizide 5 mg three times a day - Tradjenta 5 mg daily - losartan 100 mg daily - metformin 500 mg twice a day - milk of magnesia as needed 10 mL daily - Fleet enema one enema daily as needed for constipation DISCHARGE INSTRUCTIONS: Followup with Dr. Maciel for pacer check, primary care provider within 1 week of discharge. HOSPITAL COURSE: This is a 74-year-old female with a history of chronic dementia, [facility] resident, brought to the emergency room due to atrial fibrillation with rapid ventricular response. On telemetry, the patient was found to have sinus pauses 3 to 5 seconds and was diagnosed with sick sinus syndrome. She was initially seen by Dr. Kruger and was referred to Dr. Maciel for pacemaker placement, which was done on 08/28/2019 after the patient's aspirin and Plavix were held. The patient did well postoperatively except for acute delirium requiring a sitter placement. She had slightly increase in white count. Glucose slightly increased but resumed on her home medications. She was placed on amiodarone 200 mg four times a day from 08/28 to 09/01/2019 and then 200 mg daily from 09/02/2019. Laboratories on discharge: White count 12, hemoglobin 11, hematocrit 36, platelet count 232, sodium 138, potassium 4.7, chloride 106, bicarbonate 22, BUN 19, creatinine 1.14, glucose 301. PROCEDURES DURING THIS ADMISSION: Mid line due to poor IV access on 08/28/2019. Pacemaker placement on 08/28/2019. Time spent on discharge: 30 minutes. [facility]
[2019-09-02] MEDS ORDERED: AMIODARONE 200 MG TAB (PACERONE) PO SCH (09:00)
== END 2019-08-31 14:08 | DRG 244 ==
LOC: EDBD 11:50 → M ED 11:50 → M ED INP 18:23 → M MSPAV 20:20 → M PCU 08-28 01:39
PROVIDERS: ADMIT Internal Medicine Nephrology; ATTEND General Practice
PROC: 02HK3JZ Insertion of Pacemaker Lead into Right Ventricle, Percutaneous Approach (ICD-10-PCS; 2019-08-27)
PROC: 02H63JZ Insertion of Pacemaker Lead into Right Atrium, Percutaneous Approach (ICD-10-PCS; 2019-08-27)
PROC: 0JH606Z Insertion of Pacemaker, Dual Chamber into Chest Subcutaneous Tissue and Fascia, Open Approach (ICD-10-PCS; principal; 2019-08-27 15:58)
PROC: 05HB33Z Insertion of Infusion Device into Right Basilic Vein, Percutaneous Approach (ICD-10-PCS; 2019-08-28)
DX: I49.5 Sick sinus syndrome (principal); F03.90 Unspecified dementia, unspecified severity, without behavioral disturbance, psychotic disturbance, mood disturbance, and anxiety; E11.51 Type 2 diabetes mellitus with diabetic peripheral angiopathy without gangrene; I25.10 Atherosclerotic heart disease of native coronary artery without angina pectoris; E78.5 Hyperlipidemia, unspecified; I13.10 Hypertensive heart and chronic kidney disease without heart failure, with stage 1 through stage 4 chronic kidney disease, or unspecified chronic kidney disease; K21.9 Gastro-esophageal reflux disease without esophagitis; I48.0 Paroxysmal atrial fibrillation; E11.22 Type 2 diabetes mellitus with diabetic chronic kidney disease; H91.93 Unspecified hearing loss, bilateral; N18.3 Chronic kidney disease, stage 3 (moderate); Z79.01 Long term (current) use of anticoagulants; Z79.82 Long term (current) use of aspirin; Z79.899 Other long term (current) drug therapy; Z79.84 Long term (current) use of oral hypoglycemic drugs; Z88.8 Allergy status to other drugs, medicaments and biological substances; Z90.49 Acquired absence of other specified parts of digestive tract; Z86.2 Personal history of diseases of the blood and blood-forming organs and certain disorders involving the immune mechanism; Z90.2 Acquired absence of lung [part of]; Z87.891 Personal history of nicotine dependence; Z79.02 Long term (current) use of antithrombotics/antiplatelets

== ENCOUNTER → 2019-10-01 | Outpatient (REF) | payer MEDICARE, MEDICAID ==
[~2019-10-01] MED LIST changes: +ACET-907 PO; +AMIO200T PO; +ASPI81CH33 PO; +DULC10SU2 PR; +ELIQ5TAB PO; +ENEMENE PR; +GLIP5TAB8 PO; -MEMA1TAB; -MEMA1TAB PO; +MEMA1TAB3; +MEMA1TAB3 PO; +METF500T13 PO; +METO1TAB87 PO; +MOM30SS PO; +TRAD5TAB PO; +TYLE650T38 PO
[2019-10-01 13:33] LABS: HEMATOCRIT 39.5 % (36.0-47.0); HEMOGLOBIN 12.6 g/dl (12.0-15.5); MEAN CORPUSCULAR HEMOGLOBIN 28.6 pg (27.0-33.0); MEAN CORPUSCULAR HGB CONC 31.9 g/dl (32.0-36.5); MEAN CORPUSCULAR VOLUME 89.6 fl (80.0-96.0); PLATELET COUNT, AUTOMATED 303 10^3/uL (150-450); RED BLOOD COUNT 4.41 10^6/uL (4.00-5.40); WHITE BLOOD COUNT 8.2 10^3/uL (4.0-10.0)
[2019-10-01 13:51] LABS: HEMOGLOBIN A1c 8.4 %
== END ==
LOC: SKLAB8 07:00
PROVIDERS: ATTEND Internal Medicine
DX: I48.91 Unspecified atrial fibrillation (principal); Z79.899 Other long term (current) drug therapy

== ENCOUNTER → 2019-10-29 | Outpatient (REF) | payer MEDICARE, MEDICAID ==
[~2019-10-29] MED LIST changes: -GLIM2TAB2; +GLIM2TAB4
[2019-10-29 09:08] LABS: HEMATOCRIT 37.1 % (36.0-47.0); HEMOGLOBIN 12.3 g/dl (12.0-15.5); MEAN CORPUSCULAR HEMOGLOBIN 29.4 pg (27.0-33.0); MEAN CORPUSCULAR HGB CONC 33.2 g/dl (32.0-36.5); MEAN CORPUSCULAR VOLUME 88.8 fl (80.0-96.0); PLATELET COUNT, AUTOMATED 345 10^3/uL (150-450); RED BLOOD COUNT 4.18 10^6/uL (4.00-5.40); WHITE BLOOD COUNT 8.2 10^3/uL (4.0-10.0)
[2019-10-29 09:28] LABS: CALCIUM LEVEL 8.6 MG/DL (8.8-10.2); CREATININE FOR GFR 1.07 MG/DL (0.55-1.30); GLOMERULAR FILTRATION RATE 53.2 (>39)
== END ==
LOC: SKLAB8 07:00
PROVIDERS: ATTEND Internal Medicine
DX: Z79.899 Other long term (current) drug therapy (principal)

== ENCOUNTER → 2019-11-12 | Outpatient (REF) | payer MEDICARE, MEDICAID | LOC: SKLAB8 07:00 | PROVIDERS: ATTEND Internal Medicine | DX: Z79.899 Other long term (current) drug therapy (principal) ==

== ENCOUNTER → 2020-01-29 | Outpatient (REF) | payer MEDICARE, MEDICAID ==
[2020-01-29 13:45] LABS: HEMATOCRIT 40.3 % (36.0-47.0); HEMOGLOBIN 13.3 g/dl (12.0-15.5); PLATELET COUNT, AUTOMATED 373 10^3/uL (150-450); RED BLOOD COUNT 4.58 10^6/uL (4.00-5.40); WHITE BLOOD COUNT 7.9 10^3/uL (4.0-10.0)
[2020-01-29 14:08] LABS: CALCIUM LEVEL 9.7 MG/DL (8.8-10.2); CREATININE FOR GFR 1.16 MG/DL (0.55-1.30); GLOMERULAR FILTRATION RATE 48.5 (>39); POTASSIUM SERUM 4.5 MEQ/L (3.5-5.1)
[2020-01-29 14:09] LABS: ALBUMIN 3.8 GM/DL (3.2-5.2); BILIRUBIN,TOTAL 0.3 MG/DL (0.2-1.0); TOTAL PROTEIN 7.4 GM/DL (6.4-8.2)
== END ==
LOC: SKLAB8 07:00
PROVIDERS: ATTEND Internal Medicine
DX: E11.9 Type 2 diabetes mellitus without complications (principal); I48.91 Unspecified atrial fibrillation

== ENCOUNTER → 2020-03-31 | Outpatient (REF) | payer MEDICARE, MEDICAID ==
[2020-03-31 10:21] LABS: HEMOGLOBIN A1c 6.8 %
[2020-03-31 10:27] LABS: CALCIUM LEVEL 9.3 MG/DL (8.8-10.2); CREATININE FOR GFR 0.97 MG/DL (0.55-1.30); GLOMERULAR FILTRATION RATE 59.6 (>39); POTASSIUM SERUM 4.5 MEQ/L (3.5-5.1); THYROID STIMULATING HORMONE 3.78 uIU/ML (0.358-3.740)
== END ==
LOC: SKLAB8 07:00
PROVIDERS: ATTEND Internal Medicine
DX: E11.9 Type 2 diabetes mellitus without complications (principal); D64.9 Anemia, unspecified

== ENCOUNTER → 2020-04-28 | Outpatient (REF) | payer MEDICAID ==
[~2020-04-28] MED LIST changes: -AMIO200T PO; +AMIO200T3 PO
== END ==
LOC: SKLAB8 07:00
PROVIDERS: ATTEND Internal Medicine
DX: Z53.9 Procedure and treatment not carried out, unspecified reason (principal); E03.9 Hypothyroidism, unspecified

== ENCOUNTER → 2020-08-31 | Outpatient (REF) | payer MEDICARE, MEDICAID | LOC: SKLAB8 08-30 14:10 → EDSTATUS 10-08 08:27 | PROVIDERS: ATTEND Internal Medicine | DX: Z20.828 Contact with and (suspected) exposure to other viral communicable diseases (principal) ==

== ENCOUNTER → 2020-09-07 | Outpatient (REF) | payer MEDICARE, OTHER ==
[2020-09-07 10:19] LABS: INFLUENZA A AMPLIFICATION NEGATIVE (NEGATIVE); INFLUENZA B AMPLIFICATION NEGATIVE (NEGATIVE)
== END ==
LOC: SKLAB8 08:00
PROVIDERS: ATTEND Internal Medicine
DX: Z20.828 Contact with and (suspected) exposure to other viral communicable diseases (principal)
CPT/HCPCS: 87502; U0003

== ENCOUNTER → 2020-09-14 | Outpatient (REF) | payer MEDICARE, OTHER | LOC: SKLAB8 08:00 | PROVIDERS: ATTEND Internal Medicine | DX: Z20.828 Contact with and (suspected) exposure to other viral communicable diseases (principal) ==

== ENCOUNTER → 2020-09-21 | Outpatient (REF) | payer MEDICAID | LOC: SKLAB8 11:00 | PROVIDERS: ATTEND Internal Medicine | DX: Z20.828 Contact with and (suspected) exposure to other viral communicable diseases (principal) ==

== ENCOUNTER → 2020-09-28 | Outpatient (REF) | payer MEDICARE, OTHER | LOC: SKLAB8 10:11 | PROVIDERS: ATTEND Internal Medicine | DX: Z20.828 Contact with and (suspected) exposure to other viral communicable diseases (principal) ==

== ENCOUNTER → 2020-09-29 | Outpatient (REF) | payer MEDICARE, OTHER ==
[2020-09-29 15:06] LABS: HEMOGLOBIN A1c 6.2 %
== END ==
LOC: SKLAB8 07:00
PROVIDERS: ATTEND Internal Medicine
DX: E03.9 Hypothyroidism, unspecified (principal); Z79.899 Other long term (current) drug therapy

== ENCOUNTER → 2020-10-05 | Outpatient (REF) | payer MEDICARE, OTHER | LOC: SKLAB8 10:00 | PROVIDERS: ATTEND Internal Medicine | DX: Z20.828 Contact with and (suspected) exposure to other viral communicable diseases (principal) ==

== ENCOUNTER → 2020-10-12 | Outpatient (REF) | payer MEDICARE, OTHER | LOC: SKLAB8 10:00 | PROVIDERS: ATTEND Internal Medicine | DX: Z20.828 Contact with and (suspected) exposure to other viral communicable diseases (principal) ==

== ENCOUNTER → 2020-10-19 | Outpatient (REF) | payer MEDICARE | LOC: SKLAB8 10:00 | PROVIDERS: ATTEND Internal Medicine | DX: Z11.52 Encounter for screening for COVID-19 (principal) ==

== ENCOUNTER → 2020-10-26 | Outpatient (REF) | payer MEDICARE | LOC: SKLAB8 10:00 | PROVIDERS: ATTEND Internal Medicine | DX: Z20.822 Contact with and (suspected) exposure to COVID-19 (principal) ==

== ENCOUNTER → 2020-11-02 | Outpatient (REF) | payer MEDICARE | LOC: SKLAB8 09:00 | PROVIDERS: ATTEND Internal Medicine | DX: Z20.822 Contact with and (suspected) exposure to COVID-19 (principal) ==

== ENCOUNTER → 2020-11-03 | Outpatient (REF) | payer MEDICARE ==
[2020-11-03 09:08] LABS: HEMATOCRIT 34.1 % (36.0-47.0); HEMOGLOBIN 11.1 g/dl (12.0-15.5); MEAN CORPUSCULAR HEMOGLOBIN 28.8 pg (27.0-33.0); MEAN CORPUSCULAR HGB CONC 32.6 g/dl (32.0-36.5); MEAN CORPUSCULAR VOLUME 88.6 fl (80.0-96.0); PLATELET COUNT, AUTOMATED 277 10^3/uL (150-450); RED BLOOD COUNT 3.85 10^6/uL (4.00-5.40); WHITE BLOOD COUNT 7.3 10^3/uL (4.0-10.0)
[2020-11-03 09:37] LABS: ALBUMIN 3.4 GM/DL (3.2-5.2); BILIRUBIN,TOTAL 0.2 MG/DL (0.2-1.0); CALCIUM LEVEL 9.4 MG/DL (8.8-10.2); GLOMERULAR FILTRATION RATE 57.4 (>39); POTASSIUM SERUM 4.6 MEQ/L (3.5-5.1); TOTAL PROTEIN 6.5 GM/DL (6.4-8.2)
== END ==
LOC: SKLAB8 07:00
PROVIDERS: ATTEND Internal Medicine
DX: E03.9 Hypothyroidism, unspecified (principal); Z79.899 Other long term (current) drug therapy

== ENCOUNTER → 2020-11-09 | Outpatient (REF) | payer MEDICARE | LOC: SKLAB8 10:00 | PROVIDERS: ATTEND Internal Medicine | DX: Z20.822 Contact with and (suspected) exposure to COVID-19 (principal) ==

== ENCOUNTER → 2020-11-16 | Outpatient (REF) | payer MEDICARE | LOC: SKLAB8 10:30 | PROVIDERS: ATTEND Internal Medicine | DX: Z20.822 Contact with and (suspected) exposure to COVID-19 (principal) ==

== ENCOUNTER → 2020-11-23 | Outpatient (REF) | payer MEDICARE | LOC: SKLAB8 09:00 | PROVIDERS: ATTEND Internal Medicine | DX: Z20.822 Contact with and (suspected) exposure to COVID-19 (principal) ==

== ENCOUNTER → 2020-11-30 | Outpatient (REF) | payer MEDICARE | LOC: SKLAB8 09:00 | PROVIDERS: ATTEND Internal Medicine | DX: Z20.822 Contact with and (suspected) exposure to COVID-19 (principal) ==

== ENCOUNTER → 2020-12-07 | Outpatient (REF) | payer MEDICARE | LOC: SKLAB8 10:00 | PROVIDERS: ATTEND Internal Medicine | DX: Z20.822 Contact with and (suspected) exposure to COVID-19 (principal) ==

== ENCOUNTER → 2020-12-21 | Outpatient (REF) | payer MEDICARE ==
[~2020-12-21] MED LIST changes: +ASPI-569 PO; -ASPI81TAEC PO
== END ==
LOC: SKLAB8 09:00
PROVIDERS: ATTEND Internal Medicine
DX: Z20.822 Contact with and (suspected) exposure to COVID-19 (principal)

== ENCOUNTER → 2020-12-28 | Outpatient (REF) | payer MEDICARE | LOC: SKLAB8 10:00 | PROVIDERS: ATTEND Internal Medicine | DX: Z20.822 Contact with and (suspected) exposure to COVID-19 (principal) ==

== ENCOUNTER → 2021-01-13 | Outpatient (REF) | payer MEDICARE | LOC: SKLAB8 08:00 | PROVIDERS: ATTEND Internal Medicine | DX: Z20.822 Contact with and (suspected) exposure to COVID-19 (principal) ==

== ENCOUNTER → 2021-01-26 | Outpatient (REF) | payer MEDICARE ==
[2021-01-26 11:25] LABS: CALCIUM LEVEL 9.7 MG/DL (8.8-10.2); CREATININE FOR GFR 1.03 MG/DL (0.55-1.30); GLOMERULAR FILTRATION RATE 55.5 (>39); POTASSIUM SERUM 4.6 MEQ/L (3.5-5.1)
[2021-01-26 11:26] LABS: ALBUMIN 3.5 GM/DL (3.2-5.2); BILIRUBIN,TOTAL 0.2 MG/DL (0.2-1.0); TOTAL PROTEIN 7.1 GM/DL (6.4-8.2)
== END ==
LOC: SKLAB8 08:00
PROVIDERS: ATTEND Internal Medicine
DX: E03.9 Hypothyroidism, unspecified (principal); Z79.899 Other long term (current) drug therapy

== ENCOUNTER → 2021-03-30 | Outpatient (REF) | payer MEDICARE ==
[2021-03-30 14:29] LABS: HEMOGLOBIN A1c 9.8 %
== END ==
LOC: SKLAB8 07:00
PROVIDERS: ATTEND Internal Medicine
DX: E03.9 Hypothyroidism, unspecified (principal); Z79.899 Other long term (current) drug therapy

== ENCOUNTER → 2021-05-18 | Outpatient (REF) | payer MEDICARE | LOC: SKLAB8 17:32 | PROVIDERS: ATTEND Nurse Practitioner Adult Health | DX: E11.65 Type 2 diabetes mellitus with hyperglycemia (principal) ==

== ENCOUNTER → 2021-05-22 | Outpatient (REF) | payer MEDICARE ==
[2021-05-22 17:31] LABS: HEMATOCRIT 40.4 % (36.0-47.0); HEMOGLOBIN 13.6 g/dl (12.0-15.5); MEAN CORPUSCULAR HEMOGLOBIN 28.9 pg (27.0-33.0); MEAN CORPUSCULAR HGB CONC 33.7 g/dl (32.0-36.5); MEAN CORPUSCULAR VOLUME 85.8 fl (80.0-96.0); PLATELET COUNT, AUTOMATED 315 10^3/uL (150-450); RED BLOOD COUNT 4.71 10^6/uL (4.00-5.40); WHITE BLOOD COUNT 7.6 10^3/uL (4.0-10.0)
[2021-05-22 18:15] LABS: ALBUMIN 3.3 GM/DL (3.2-5.2); BILIRUBIN,TOTAL 0.2 MG/DL (0.2-1.0); CREATININE FOR GFR 1.17 MG/DL (0.55-1.30); GLOMERULAR FILTRATION RATE 47.9 (>39); POTASSIUM SERUM 4.7 MEQ/L (3.5-5.1); TOTAL PROTEIN 6.8 GM/DL (6.4-8.2)
== END ==
LOC: SKLAB8 08:17
PROVIDERS: ATTEND Internal Medicine
DX: E11.9 Type 2 diabetes mellitus without complications (principal)

== ENCOUNTER → 2021-08-03 | Outpatient (REF) | payer MEDICARE ==
[2021-08-03 12:33] LABS: ALBUMIN 3.3 GM/DL (3.2-5.2); BILIRUBIN,TOTAL 0.4 MG/DL (0.2-1.0); CREATININE FOR GFR 1.09 MG/DL (0.55-1.30); GLOMERULAR FILTRATION RATE 51.8 (>39); PHOSPHORUS LEVEL 3.6 MG/DL (2.5-4.9); POTASSIUM SERUM 4.1 MEQ/L (3.5-5.1); TOTAL PROTEIN 6.8 GM/DL (6.4-8.2)
[2021-08-03 13:20] LABS: PTH INTACT 40.3 PG/ML (18.5-88.0); TOTAL 25(OH) VITAMIN D 21.2 NG/ML (30.0-100.0)
== END ==
LOC: SKLAB8 07:00
PROVIDERS: ATTEND Internal Medicine
DX: E03.9 Hypothyroidism, unspecified (principal); E55.9 Vitamin D deficiency, unspecified; Z79.899 Other long term (current) drug therapy

== ENCOUNTER → 2021-08-07 | Outpatient (REF) | payer MEDICARE | LOC: SKLAB8 07:39 | PROVIDERS: ATTEND Internal Medicine | DX: Z20.822 Contact with and (suspected) exposure to COVID-19 (principal) ==

== ENCOUNTER → 2021-08-10 | Outpatient (REF) | payer MEDICARE | LOC: SKLAB8 05:55 | PROVIDERS: ATTEND Internal Medicine | DX: Z20.822 Contact with and (suspected) exposure to COVID-19 (principal) ==

== ENCOUNTER → 2021-08-14 | Outpatient (REF) | payer MEDICARE | LOC: SKLAB8 06:31 | PROVIDERS: ATTEND Internal Medicine | DX: Z20.822 Contact with and (suspected) exposure to COVID-19 (principal) ==

== ENCOUNTER → 2021-08-17 | Outpatient (REF) | payer MEDICARE | LOC: SKLAB8 06:44 | PROVIDERS: ATTEND Internal Medicine | DX: Z20.822 Contact with and (suspected) exposure to COVID-19 (principal) ==

== ENCOUNTER → 2021-08-23 | Outpatient (REF) | payer MEDICARE | LOC: SKLAB8 06:34 | PROVIDERS: ATTEND Internal Medicine | DX: Z20.822 Contact with and (suspected) exposure to COVID-19 (principal) ==

== ENCOUNTER → 2021-08-24 | Outpatient (REF) | payer MEDICARE ==
[2021-08-24 10:19] LABS: HEMOGLOBIN A1c 9.6 %
== END ==
LOC: SKLAB8 07:00
PROVIDERS: ATTEND Internal Medicine
DX: E11.9 Type 2 diabetes mellitus without complications (principal)

== ENCOUNTER → 2021-08-30 | Outpatient (REF) | payer MEDICARE | LOC: SKLAB8 08:36 | PROVIDERS: ATTEND Internal Medicine | DX: Z20.822 Contact with and (suspected) exposure to COVID-19 (principal) ==

== ENCOUNTER → 2021-09-20 | Outpatient (REF) | payer MEDICARE | LOC: SKLAB8 06:51 | PROVIDERS: ATTEND Internal Medicine | DX: Z20.822 Contact with and (suspected) exposure to COVID-19 (principal) ==

== ENCOUNTER → 2021-09-27 | Outpatient (REF) | payer MEDICARE | LOC: SKLAB8 14:29 | PROVIDERS: ATTEND Internal Medicine | DX: Z20.822 Contact with and (suspected) exposure to COVID-19 (principal) ==

== ENCOUNTER → 2021-09-28 | Outpatient (REF) | payer MEDICARE ==
[2021-09-28 12:06] LABS: HEMOGLOBIN A1c 9.2 %
== END ==
LOC: SKLAB8 07:00
PROVIDERS: ATTEND Internal Medicine
DX: E03.9 Hypothyroidism, unspecified (principal); E11.9 Type 2 diabetes mellitus without complications

== ENCOUNTER → 2021-10-04 | Outpatient (REF) | payer MEDICARE | LOC: SKLAB8 14:48 | PROVIDERS: ATTEND Internal Medicine | DX: Z20.822 Contact with and (suspected) exposure to COVID-19 (principal) ==

== ENCOUNTER → 2021-10-11 | Outpatient (REF) | payer MEDICARE | LOC: SKLAB8 14:21 | PROVIDERS: ATTEND Internal Medicine | DX: Z20.822 Contact with and (suspected) exposure to COVID-19 (principal) ==

== ENCOUNTER → 2021-10-18 | Outpatient (REF) | payer MEDICARE | LOC: SKLAB8 11:35 | PROVIDERS: ATTEND Internal Medicine | DX: Z20.822 Contact with and (suspected) exposure to COVID-19 (principal) ==

== ENCOUNTER → 2021-10-26 | Outpatient (REF) | payer MEDICARE ==
[~2021-10-26] MED LIST changes: -AMIO200T3 PO; +AMIO200T49 PO; +DONE-1 PO; -DONETAB6 PO; +LOSA100T45; +LOSA100T45 PO; -LOSA100T50; -LOSA100T50 PO
[2021-10-26 11:16] LABS: HEMATOCRIT 43.3 % (36.0-47.0); HEMOGLOBIN 13.8 g/dl (12.0-15.5); MEAN CORPUSCULAR HEMOGLOBIN 28.6 pg (27.0-33.0); MEAN CORPUSCULAR HGB CONC 31.9 g/dl (32.0-36.5); MEAN CORPUSCULAR VOLUME 89.8 fl (80.0-96.0); PLATELET COUNT, AUTOMATED 337 10^3/uL (150-450); RED BLOOD COUNT 4.82 10^6/uL (4.00-5.40); WHITE BLOOD COUNT 6.8 10^3/uL (4.0-10.0)
[2021-10-26 11:32] LABS: ALBUMIN 3.3 GM/DL (3.2-5.2); ALT/SGPT 20 U/L (12-78); BILIRUBIN,TOTAL 0.3 MG/DL (0.2-1.0); BLOOD UREA NITROGEN 11 MG/DL (7-18); CALCIUM LEVEL 9.3 MG/DL (8.8-10.2); CARBON DIOXIDE LEVEL 19 MEQ/L (21-32); CHLORIDE LEVEL 107 MEQ/L (98-107); CREATININE FOR GFR 0.94 MG/DL (0.55-1.30); GLOMERULAR FILTRATION RATE > 60.0 (>39); GLUCOSE, FASTING 147 MG/DL (70-100); POTASSIUM SERUM 4.7 MEQ/L (3.5-5.1); SODIUM LEVEL 138 MEQ/L (136-145); TOTAL PROTEIN 7.1 GM/DL (6.4-8.2)
== END ==
LOC: SKLAB8 10-23 07:00
PROVIDERS: ATTEND Internal Medicine
DX: U07.1 COVID-19 (principal); Z79.899 Other long term (current) drug therapy

== ENCOUNTER → 2021-10-26 | Outpatient (REF) | payer MEDICARE | LOC: SKLAB8 07:00 | PROVIDERS: ATTEND Internal Medicine | DX: Z53.9 Procedure and treatment not carried out, unspecified reason (principal) ==

== ENCOUNTER → 2021-12-28 | Outpatient (REF) | payer MEDICARE ==
[2021-12-28 18:55] LABS: HEMOGLOBIN A1c 9.5 %
== END ==
LOC: SKLAB8 07:00
PROVIDERS: ATTEND Internal Medicine
DX: E11.9 Type 2 diabetes mellitus without complications (principal)

== ENCOUNTER → 2022-06-28 | Outpatient (REF) | payer MEDICARE ==
[2022-06-28 12:36] LABS: HEMOGLOBIN A1c 6.8 %
== END ==
LOC: SKLAB8 07:00
PROVIDERS: ATTEND Internal Medicine
DX: E11.9 Type 2 diabetes mellitus without complications (principal)

== ENCOUNTER → 2022-11-01 | Outpatient (REF) | payer MEDICARE | LOC: SKLAB8 07:00 | PROVIDERS: ATTEND Internal Medicine | DX: E03.9 Hypothyroidism, unspecified (principal); Z79.890 Hormone replacement therapy; E11.9 Type 2 diabetes mellitus without complications; Z53.8 Procedure and treatment not carried out for other reasons ==

== ENCOUNTER → 2022-11-09 | Outpatient (REF) | payer MEDICARE ==
[2022-11-09 08:41] LABS: HEMATOCRIT 50.2 % (36.0-47.0); HEMOGLOBIN 15.6 g/dl (12.0-15.5); MEAN CORPUSCULAR HEMOGLOBIN 30.1 pg (27.0-33.0); MEAN CORPUSCULAR HGB CONC 31.1 g/dl (32.0-36.5); MEAN CORPUSCULAR VOLUME 96.7 fl (80.0-96.0); PLATELET COUNT, AUTOMATED 370 10^3/uL (150-450); RED BLOOD COUNT 5.19 10^6/uL (4.00-5.40); WHITE BLOOD COUNT 11.6 10^3/uL (4.0-10.0)
[2022-11-09 09:13] LABS: CALCIUM LEVEL 10.7 MG/DL (8.3-10.6); CREATININE FOR GFR 1.62 MG/DL (0.55-1.30); GLOMERULAR FILTRATION RATE 32.7 (>39)
== END ==
LOC: SKLAB8 06:02
PROVIDERS: ATTEND Internal Medicine
DX: E11.65 Type 2 diabetes mellitus with hyperglycemia (principal)

== ENCOUNTER → 2022-11-09 | Outpatient (REF) | payer MEDICARE | LOC: SKLAB8 07:11 | PROVIDERS: ATTEND Internal Medicine | DX: Z53.8 Procedure and treatment not carried out for other reasons (principal) ==